=== PATIENT | male | born 1950 | race Caucasian/White ===

== ENCOUNTER 2018-10-10 02:47 | Outpatient (CLI) | payer BC, SELFPAY ==
--- NOTE | 2018-10-10 15:20 | PFT_ITS ---
DATE OF SERVICE: 10/10/18 REQUESTING PROVIDER: Dr. Sarah Spirometry shows no evidence of obstructive airways disease. No bronchodilator testing was carried out. Lung volumes show mild restriction. This may be related to respiratory neuromuscular weakness. Diffusion capacity both uncorrected and corrected are normal. Airways resistance normal. IMPRESSION: No evidence of obstructive airways disease. The mild restrictive pattern seen on this pulmonary test may be related to respiratory neuromuscular weakness. There is normal diffusion capacity. If respiratory neuromuscular weakness from myasthenia is in question, proceeding with MVV, MIP, and MEP maneuver may prove to be useful. Clinical correlation therefore recommended.
== END 2018-10-10 03:07 ==
PROVIDERS: PCP Family Medicine; Visit Provider Thoracic Surgery (Cardiothoracic Vascular Surgery)
DX: G70.00 Myasthenia gravis without (acute) exacerbation (principal)
CPT/HCPCS: 94150; 94726; 94729; 94010

== ENCOUNTER 2022-05-03 11:30 | Outpatient (CLI) | payer MEDICARE, BC, SELFPAY ==
[2022-05-03 11:46] LABS: Abs Immature Grans 0.05 10^3/uL (0.0-0.06); Absolute Basophil Count 0.04 10^3/uL (0.0-0.2); Absolute Lymphocyte Count 1.67 10^3/uL (1.2-3.4); Absolute Monocyte Count 0.77 10^3/uL (0.1-0.8); Absolute Neutrophil Count 5.26 10^3/uL (1.2-6.7); Basophils % 0.5; Eosinophils % 2.5; HCT 45.5 % (40.0-50.0); HGB 15.8 g/dL (13.5-17.5); Immature Grans % 0.6; Lymphocytes % 20.9; MCH 32.3 pg (27.0-33.0); MCHC 34.7 % (32.0-36.0); MCV 93 fL (80-95); MPV 8.6 fL (8.0-11.0); Monocytes % 9.6; Neutrophils % 65.9; Platelet Count 235 10^3/uL (130-400); RBC 4.89 10^6/uL (4.36-5.78); RDW 11.9 % (11.8-14.1); RDW-SD 41.1 fL; WBC 7.99 10^3/uL (4.4-10.8)
[2022-05-03 11:55] LABS: ESR 3 mm/hr (0-20)
[2022-05-03 22:09] LABS: CRP, High Sensitivity 2.42 mg/L (See Note)
== END 2022-05-03 11:31 | disposition home or self-care (01) ==
LOC: LBO 11:31
PROVIDERS: PCP Physician Assistant Medical; Visit Provider Otolaryngology
DX: R51.9 Headache, unspecified (principal); J01.01 Acute recurrent maxillary sinusitis
CPT/HCPCS: 36415; 85652; 86141; 85025

== ENCOUNTER → 2022-05-17 02:04 | Outpatient (CLI) | payer MEDICARE, BC, SELFPAY ==
--- NOTE | 2022-05-17 07:30 | DI.CT_ITS ---
Exam(s) CT SINUS WO EXAM: CT SINUS WO CLINICAL HISTORY: hx sinusitus, facial pain,headache, r51.9 TECHNIQUE: COMPARISON: No exams were available for comparison FINDINGS: CT examination of the paranasal sinuses was performed without contrast administration. Visualized po rtions of the brain are unremarkable. Orbital contents appear intact. Mastoid air cells are clear and temporal bone structures are unremarkable. There appears to been a prior bilateral maxillary antrectomy. There is nasal deviation to the right. There is apparent resection of right middle turbinate. There are [id number] changes of mucop eriosteal thickening in the maxillary antra and ethmoid air cells bilaterally. Frontal and sphenoid sinuses are clear. No bony erosion or destruction. IMPRESSION: Mild to my sinusitis, chronic, involving maxillary and ethmoid sinuses as described above. Prior janis ateral maxillary antrectomy noted . RADIATION DOSE DELIVERED: 135.78mGy.cm Total DLP !Error CTDIvol DATA REPOSITORY: All CT scans at this facility are submitted to the National Radiology Data Registry (NRDR) Dose Index Registry (DIR) with the [employer] (A[employer]). RADIATION OPTIMIZATION: All CT scans at this facility use at least one of these dose optimization te chniques: automated exposure control; mA and/or kV adjustment per patient size (includes targeted exa ms where dose is matched to clinical indication); or iterative reconstruction.
== END ==
PROVIDERS: PCP Physician Assistant Medical; Visit Provider Otolaryngology
DX: J32.2 Chronic ethmoidal sinusitis; J32.0 Chronic maxillary sinusitis
CPT/HCPCS: 70486

== ENCOUNTER 2024-06-29 17:14 | Inpatient (IN) | payer MEDICARE, BC, SELFPAY ==
[2024-06-29] VITALS (18 sets, daily range): BP systolic 110–140; BP diastolic 43–86; PULSE 75–81; RESP 14–22; TEMP 37.3–38.4; O2SAT 93–98
--- NOTE | 2024-06-29 17:45 | DI.CT_ITS ---
Exam(s) CT ABDOMEN PELVIS W EXAM: CT ABDOMEN PELVIS W CLINICAL HISTORY: RLQ abd pain. TECHNIQUE: Imaging Protocol: Axial computed tomography images with coronal and sagittal reformatted images were created and reviewed CONTRAST MATERIAL: Intravenous: Omnipaque-350 100cc Oral: None COMPARISON: CT ABD PELVIS WITH CONTRAST from 05/25/2009 FINDINGS: VISUALIZED LUNG BASES: There is a 3 mm nodule in the left lower lobe which was not evident on prior C T scan of 2008. There is also some pleural thickening in the lateral right lung base which was not p reviously present. This exhibits fluid density and is probably a small loculated pleural effusion. ABDOMEN: There is no ascites. LIVER: There is a cystic exophytic mass off the inferior aspect of the right hepatic lobe which is lo culated and measures approximately 8 cm craniocaudal x 4 cm at its widest x 4 cm AP. There is some s urrounding streaking in fat. The lower aspect of this finding is adherent to the musculature of the lateral abdominal wall. This has the appearance of a probable abscess or metastatic lesion. There a re no dilated intrahepatic ducts. GALLBLADDER/BILIARY: There are surgical clips around the gallbladder. No obvious gallstones. The CB D is not dilated. PANCREAS: No evidence of pancreatic mass nor dilatation of the pancreatic duct. SPLEEN: Spleen is not enlarged. No obvious intrasplenic lesions. Splenic and portal veins are paten t. ADRENALS: There are no significant adrenal masses. KIDNEYS:No cysts evident. No solid renal masses. No calculi nor hydronephrosis.. ABDOMINAL AORTA: Abdominal aorta is not enlarged. LYMPH NODES:There is no retroperitoneal nor paraaortic adenopathy. ABDOMINAL WALL: Is an anterior abdominal wall midline umbilical hernia which contains fat. There is some streaking in the fat but no drainable fluid collection and there are no bowel loops within the h ernia sac. There is no bowel obstruction. GI: No evidence of bowel obstruction nor free air. PELVIS: GI: Appendix is not identified and may be surgically absent.There is evidence of partial sigmoid rese ction. No obvious abnormality at this level. No evidence of obvious diverticulitis. LYMPH NODES: There is no intrapelvic nor inguinal adenopathy. REPRODUCTIVE: Prostate size upper normal. Seminal vesicles unremarkable. URINARY BLADDER: Partially obscured by beam hardening artifact from left hip prosthesis. The bladder is not distended. OSSEOUS: There is a left hip prosthesis. No fractures. No significant osseous lesions evident. IMPRESSION: 1. Main findings are in the right flank where there is a loculated predominately fluid density lesion intimately associated with the inferior aspect of the right hepatic lobe and extending caudally 8 cm by 4 cm wide by 4 cm AP. First consideration is for an abscess in the correct clinical setting. Ot her consideration here is for neoplasm although less likely. 2. There is evidence of previous partial sigmoid resection. No abnormality at this level in the left side of the pelvis. 3. There are surgical clips around a finding in the gallbladder fossa which has the appearance of a g allbladder in this patient apparently has had previous cholecystectomy for perforated gallbladder. T herefore this may be a remnant fluid collection in the gallbladder fossa and may be related to the ab ove described finding. 4. Anterior abdominal wall midline umbilical hernia containing streaking no bowel loops. There is no bowel obstruction 5. Recommend referral to interventional radiology for CT-guided right-sided percutaneous abscess dra hill. Findings discussed with ER physician 06/29/2024 at 7:45 p.m. RADIATION DOSE DELIVERED: 730.61mGy.cm Total DLP DATA REPOSITORY: All CT scans at this facility are submitted to the National Radiology Data Registry (NRDR) Dose Index Registry (DIR) with the [employer] (ACR). RADIATION OPTIMIZATION: All CT scans at this facility use at least one of these dose optimization te chniques: automated exposure control; mA and/or kV adjustment per patient size (includes targeted exa ms where dose is matched to clinical indication); or iterative reconstruction.
[2024-06-29 18:08] LABS: Lactate 1.4 mmol/L (0.6-1.4)
[2024-06-29 18:09] LABS: Abs Immature Grans 0.05 10^3/uL (0.0-0.06); Absolute Eosinophil Count 0.18 10^3/uL (0.0-0.7); Absolute Lymphocyte Count 1.45 10^3/uL (1.2-3.4); Absolute Monocyte Count 0.99 10^3/uL (0.1-0.8); Absolute Neutrophil Count 8.67 10^3/uL (1.2-6.7); Basophils % 0.4 %; Eosinophils % 1.6 %; HGB 14.8 g/dL (13.5-17.5); Immature Grans % 0.4 %; Lymphocytes % 12.7 %; MCH 32.2 pg (27.0-33.0); MCHC 34.4 % (32.0-36.0); MCV 94 fL (80-95); MPV 8.4 fL (8.0-11.0); Monocytes % 8.7 %; Neutrophils % 76.2 %; Platelet Count 256 10^3/uL (130-400); RBC 4.59 10^6/uL (4.36-5.78); RDW 12.2 % (11.8-14.1); RDW-SD 42.1 fL; WBC 11.38 10^3/uL (4.4-10.8)
[2024-06-29 18:10] LABS: Absolute Basophil Count 0.05 10^3/uL (0.0-0.2)
[2024-06-29] MEDS: HYDROmorphone 2 MG/ML SYR 1 MG IVP ×2 (18:12→22:02)
[2024-06-29] MEDS: Ondansetron 4 MG/2 ML VIAL IVP (18:12)
[2024-06-29 18:29] LABS: ALT 27 U/L (16-63); AST 19 U/L (15-37); Albumin 3.8 g/dL (3.4-5.0); Alkaline Phosphatase 82 U/L (46-116); Anion Gap 11.1 mmol/L (3-11); BUN 17 mg/dL (7-18); Bilirubin, Total 0.87 mg/dL (0.2-1.0); CO2 27.9 mmol/L (21.0-32.0); CREATININE 0.8 mg/dL (0.70-1.30); Calcium 8.8 mg/dL (8.5-10.1); Chloride 101 mmol/L (98-107); Estimated GFR 92.29 (mL/min/1.73m2); Glucose 110 mg/dL (74-106); Lipase 12 U/L (<78); Magnesium 2.1 mg/dL (1.8-2.4); Potassium 4.2 mmol/L (3.5-5.1); Sodium 140 mmol/L (136-145); Total Protein 8.1 g/dL (6.4-8.2)
[2024-06-29 18:41] LABS: Procalcitonin < 0.10 ng/mL
[2024-06-29] MEDS: ACETAMINOPHEN 1,000 MG/100 ML BAG 400 MG IVPB (19:00)
[2024-06-29 19:06] LABS: Bilirubin Negative (Negative); Blood Negative (Negative); Clarity Clear (Clear); Glucose Negative (Negative); Ketones 15 mg/dL (Negative); Leukocyte Esterase Negative (Negative); Nitrite Negative (Negative); Specific Gravity 1.025 (1.005-1.025)
[2024-06-29] MEDS: Omnipaque 350 MG/ML 100 ML BTL IJ (19:15)
[2024-06-29] MEDS: Normal Saline Flush 10 ML SYR IVP (19:17)
[2024-06-29] MEDS: Normal Saline - Diluent 50 ML VIAL IJ (19:17)
[2024-06-29] MEDS: PIPERACILLIN/TAZO 4.5 GM in Normal Saline 100 ML IVPB (20:37)
--- NOTE | 2024-06-29 22:00 | DI.RAD_ITS ---
Exam(s) XR PORTABLE CHEST AP EXAM: XR PORTABLE CHEST AP CLINICAL HISTORY: fever TECHNIQUE: 2D digital imaging was performed of the chest. One image was obtained. An AP view was ob tained. COMPARISON: CT CT ABDOMEN PELVIS W from 06/29/2024 FINDINGS: MEDIASTINUM: Normal. HEART: Normal. PULMONARY VASCULATURE: Normal. LUNGS: Atelectasis is seen in the left lung base. No focal consolidating infiltrates are seen. PLEURAL SPACE: No pleural effusion or pneumothorax. BONE:Within normal limits for the patient's age. OTHER FINDINGS:There is elevation of the right hemidiaphragm. IMPRESSION: Mild left basilar atelectasis. DATA REPOSITORY: RADIATION DOSE DELIVERED:
--- NOTE | 2024-06-29 22:04 | W.PM.HP.N ---
Date of service: 06/29/24 Time of Service: 22:32 Assessment and Plan Assessment and plan (1) Abdominal pain: Start date: 06/29/24 Status: Acute Assessment and plan: This is a 74-year-old gentleman who has had a 2-day history of fever and chills and abdominal wall discomfort. Exam reveals mostly tenderness with palpable mass over appendix incision and this may be an incarcerated incisional hernia though CT did not show an incisional hernia but umbilical hernia which was not obstructed. He will be given pain management with Dilaudid IV and as he is hungry, he will eat and drink as tolerated with clear fluids. Surgery was consulted and will review patient in the morning. He did have some element of flank pain with referred pain into his right testicle but did not have any evidence of nephrolithiasis with no hematuria. CT of the abdomen was unrevealing but CT renal colic imaging may be considered or ultrasound of the kidneys could be considered. If patient is cleared by surgery he may be able to return home with observant care if there is no treatable incisional hernia. 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 He is a full code. (2) Fever: Start date: 06/29/24 Status: Acute Assessment and plan: Patient had fever with the onset of symptoms of his abdominal discomfort. Imaging of the abdomen did show a stable fluid collection in the gallbladder fossa where he had a previous scope cholecystectomy after rupture of his gallbladder. This could be drained if there is a question of abscess. He also has a possible left lower lobe infiltrate which should be covered with patient on Zosyn for coverage of this abdominal source of infection. Cultures were performed. (3) Pneumonia: Start date: 06/29/24 Status: Acute Assessment and plan: Patient had no respiratory symptoms but fever. He is a previous smoker. Lung exam does show decreased aeration throughout but no focalizing findings. Patient should be covered with Zosyn for this problem and follow-up imaging if indicated. (4) Diabetes: Assessment and plan: Not on treatment with patient taking Ozempic caused his gallbladder to rupture. His control with diet and exercise but is overweight. Glucometer measurements ACHS with sensitive sliding scale insulin coverage. (5) Myasthenia gravis: Assessment and plan: Continue outpatient medical therapy. History of Present Illness History of Present Illness Chief Complaint: Progressive worsening of right mid abdominal wall pain, fever. Narrative: This is a 73-year-old male patient who has had an appendectomy when he was 7 years old with a well-healed scar and a ruptured gallbladder in April 2023 treated at [facility] status post partial colectomy and a chronic collection of fluid in the gallbladder fossa. He also has a history of diverticulitis which did not cause abscesses or rupture. Is unclear when he had his partial colectomy. 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 He does do lifting and 2 days prior to presentation patient began to have progressive worsening of right mid abdominal pain over his incisions where he had his previous appendectomy. There is a slight palpable hard mass in the same region. He also was having chills and fever but was eating normally though less. He denies any nausea or vomiting. He states that his pain did radiate into his mid back and he does have chronic back pain status post multiple joint replacements with left SADIQ and bilateral TKA. His pain did radiate into his right testicle at times but this is not persistent. He was seen by physical therapy today who palpated his firm mass in his right mid abdomen over the incisional region of the appendectomy which was quite long. He denied any rebound but has present tenderness to palpation over that area. He was guarding. He was sent to the outpatient clinic and then the ED for evaluation. CT of the abdomen appears stable according to [facility] surgery but did show an umbilical hernia which was not incarcerated he did not mention other incisional scars along the abdominal wall. It also did not mention any hydronephrosis the patient having been referred flank pain into his right testicle. In the ED the patient did receive Dilaudid which was transiently helping his abdominal wall discomfort but not completely getting rid of it. Tylenol was offered as well. He was hungry and wanted to drink fluids at least with his birthday being tomorrow. He denied nausea though he did have an order for Zofran. Local surgery was called and will be consulted for evaluation of the patient in the morning. The patient to be admitted for continued Zosyn IV with a question of abscessing of his gallbladder fossa fluid collection though this appears stable and [facility] surgery did not think this was an issue. Of concern is his fever and chills with his slightly elevated WBC. Some of the pain is in his right flank and back. His urinalysis did not have microscopic hematuria and had no history of renal lithiasis. He is not complaining of tenderness in the right upper quadrant. Patient is a full code. Review of Systems Narrative: 13 point review of systems otherwise unrevealing or stable. PFSH All Active Problems (Updated 06/30/24 @ 07:14 by Ignacio Lewis) Pneumonia (Acute) Fever (Acute) Abdominal pain (Acute) Headache (Acute) Facial pain (Acute) Postnasal drip (Acute) Acute maxillary sinusitis (Acute) Medical History Vertigo Change in vision History of angiography Diabetes Type 2 Myasthenia gravis Mitral valve prolapse Colon polyps Prinzmetal angina Chronic sinusitis Arthritis Surgical History History of total left hip replacement History of partial colectomy History of thymectomy 07/2018 History of repair of rotator cuff History of tonsillectomy and adenoidectomy History of appendectomy History of colonoscopy with polypectomy History of endoscopic sinus surgery History of total bilateral knee replacement Family History Father , 76 Prostate cancer Mother , 98 No problems noted. Brother Prostate cancer Brother Prostate cancer Sister Diabetes Social History Smoking/Tobacco Use Status: Former Tobacco Use Quit Date: 07/15/84 Smoking risk assessment performed?: Yes Alcohol Intake: never Drug use: Never Substance use type: does not use Housing: house Pets and animals: No Meds Allergies and Home Medications Allergies Allergy/AdvReac Type Severity Reaction Status Date / Time chlorzoxazone (From Parafon Allergy Chest pain Verified 06/29/24 17:22 Forte) ibuprofen Allergy Agitation Verified 06/29/24 17:22 rosuvastatin Allergy Other (See Verified 06/29/24 17:22 Comment) Home Medications ?Medication ?Instructions ?Recorded ?Confirmed ?Type acetaminophen 500 mg tablet 500 mg PO Q6H PRN 06/13/21 06/29/24 History cholecalciferol (vitamin D3) 1,250 1,250 mcg PO QWEEK 06/13/21 06/29/24 History mcg (50,000 unit) capsule loratadine 10 mg tablet (Allergy 10 mg PO DAILY 06/13/21 06/29/24 History Relief (loratadine)) pyridostigmine bromide 60 mg 30 mg PO TID 06/13/21 06/29/24 History tablet (Mestinon) tramadol 50 mg tablet (Ultram) 50 mg PO DAILY PRN 06/13/21 06/29/24 History semaglutide 0.25 mg or 0.5 mg (2 0.5 mg subcut QWEEK 07/04/22 06/29/24 History mg/1.5 mL) subcutaneous pen injector (Ozempic) Exam Narrative Exam Narrative: General: Patient is appropriate for age, moderately obese, moderate distress from his abdominal discomfort lying in bed with his head up at a 45 degree angle. He is alert and oriented x 3. HEENT: Normocephalic, eyes with pupils equal and react to light symmetrically, extraocular movement intact and sclera anicteric. Oropharynx with moist Koza and fair dentition. Neck: Supple without JVD. Back: Stooped posture without CVA tenderness. Lungs: Bronchovesicular breath sounds diffusely with fair aeration, no focalizing rales or rhonchi. No expiratory wheeze. Heart: Regular rate and rhythm with no murmurs or gallops appreciated. Abdomen: Obese contour, soft to palpation with no palpable hepatosplenomegaly or Brooke sign. Multiple incisional scars over his abdomen with tenderness and focal palpable firm mass over right mid to lower abdominal incision from his previous appendectomy when he is 7 years old. This mass is not movable or reducible. It is tender focally without rebound. Genitalia/rectal: Exam deferred. Extremities: No clubbing, cyanosis or pitting edema. Well-healed scars over both knees. Moderate nonpitting edema both lower extremities. Good capillary refill. Skin: Normal color, warm and slightly moist. Neuro: Cranial nerves II through XII gross intact, patient is hard of hearing, no focalizing motor deficits and no tremor. Psych: Normal affect and mood. No abnormal thought processes. Remote and recent memory grossly intact. Results Imaging Imaging Studies: EXAM: CT ABDOMEN PELVIS W CLINICAL HISTORY: RLQ abd pain. TECHNIQUE: Imaging Protocol: Axial computed tomography images with coronal and sagittal reformatted images were created and reviewed CONTRAST MATERIAL: Intravenous: Omnipaque-350 100cc Oral: None COMPARISON: CT ABD PELVIS WITH CONTRAST from 05/25/2009 FINDINGS: VISUALIZED LUNG BASES: There is a 3 mm nodule in the left lower lobe which was not evident on prior CT scan of 2008. There is also some pleural thickening in the lateral right lung base which was not previously present. This exhibits fluid density and is probably a small loculated pleural effusion. ABDOMEN: There is no ascites. LIVER: There is a cystic exophytic mass off the inferior aspect of the right hepatic lobe which is loculated and measures approximately 8 cm craniocaudal x 4 cm at its widest x 4 cm AP. There is some surrounding streaking in fat. The lower aspect of this finding is adherent to the musculature of the lateral abdominal wall. This has the appearance of a probable abscess or metastatic lesion. There are no dilated intrahepatic ducts. GALLBLADDER/BILIARY: There are surgical clips around the gallbladder. No obvious gallstones. The CBD is not dilated. PANCREAS: No evidence of pancreatic mass nor dilatation of the pancreatic duct. SPLEEN: Spleen is not enlarged. No obvious intrasplenic lesions. Splenic and portal veins are patent. ADRENALS: There are no significant adrenal masses. KIDNEYS:No cysts evident. No solid renal masses. No calculi nor hydronephrosis.. ABDOMINAL AORTA: Abdominal aorta is not enlarged. LYMPH NODES:There is no retroperitoneal nor paraaortic adenopathy. ABDOMINAL WALL: Is an anterior abdominal wall midline umbilical hernia which contains fat. There is some streaking in the fat but no drainable fluid collection and there are no bowel loops within the hernia sac. There is no bowel obstruction. GI: No evidence of bowel obstruction nor free air. PELVIS: GI: Appendix is not identified and may be surgically absent.There is evidence of partial sigmoid resection. No obvious abnormality at this level. No evidence of obvious diverticulitis. LYMPH NODES: There is no intrapelvic nor inguinal adenopathy. REPRODUCTIVE: Prostate size upper normal. Seminal vesicles unremarkable. URINARY BLADDER: Partially obscured by beam hardening artifact from left hip prosthesis. The bladder is not distended. OSSEOUS: There is a left hip prosthesis. No fractures. No significant osseous lesions evident. IMPRESSION: 1. Main findings are in the right flank where there is a loculated predominately fluid density lesion intimately associated with the inferior aspect of the right hepatic lobe and extending caudally 8 cm by 4 cm wide by 4 cm AP. First consideration is for an abscess in the correct clinical setting. Other consideration here is for neoplasm although less likely. 2. There is evidence of previous partial sigmoid resection. No abnormality at this level in the left side of the pelvis. 3. There are surgical clips around a finding in the gallbladder fossa which has the appearance of a gallbladder in this patient apparently has had previous cholecystectomy for perforated gallbladder. Therefore this may be a remnant fluid collection in the gallbladder fossa and may be related to the above described finding. 4. Anterior abdominal wall midline umbilical hernia containing streaking no bowel loops. There is no bowel obstruction 5. Recommend referral to interventional radiology for CT-guided right-sided percutaneous abscess drainage. Exam: XR Chest Exam date and time: 06/29/2024 10:18 PM Age: 73 years old Clinical indication: Fever TECHNIQUE: Imaging protocol: Radiologic exam of the chest. Views: 1 view. COMPARISON: CT ABDOMEN PELVIS W 06/29/2024 7:11 PM FINDINGS: Lungs: Focal atelectasis and/or early consolidation left lower lobe of the lung may represent lobar pneumonia. There is mild pulmonary venous congestion. There is mild diffuse interstitial edema. Underlying inflammatory or infectious process not excluded. Pleural spaces: There are no pleural effusions. No evidence of pneumothorax. Heart/Mediastinum: The heart is enlarged. There is prominence of the mediastinum. Vasculature: The aorta demonstrates mild atherosclerotic calcification. Bones/joints: The skeletal structures and soft tissues show no evidence of fracture or other acute processes. Soft tissues: The soft tissues of the extrathoracic region are unremarkable. IMPRESSION: 1. Possible congestive heart failure. Underlying inflammatory or infectious process not excluded. 2. Focal atelectasis and/or early consolidation left lower lobe of the lung may represent lobar pneumonia. Labs 06/30/24 06:05 06/30/24 06:05 Labs: Laboratory Results - last 24 hr 06/29/24 06/29/24 06/29/24 18:03 18:03 18:53 WBC 11.38 H RBC 4.59 Hgb 14.8 Hct 43.0 MCV 94 MCH 32.2 MCHC 34.4 RDW 12.2 Plt Count 256 MPV 8.4 Immature Gran % 0.4 Neutrophils % 76.2 Lymphocytes % 12.7 Monocytes % 8.7 Eosinophils % 1.6 Basophils % 0.4 Nucleated RBC % 0.0 Absolute Neutrophils 8.67 H Absolute Lymphocytes 1.45 Absolute Monocytes 0.99 H Absolute Eosinophils 0.18 Absolute Basophils 0.05 VBG Lactate 1.4 Sodium 140 Potassium 4.2 Chloride 101 Carbon Dioxide 27.9 Anion Gap 11.1 H BUN 17 Creatinine 0.8 Est GFR (CKD-EPI 2020) 92.29 Glucose 110 H Calcium 8.8 Magnesium 2.1 Total Bilirubin 0.87 AST 19 ALT 27 Alkaline Phosphatase 82 Total Protein 8.1 Albumin 3.8 Lipase Cancelled 12 Procalcitonin < 0.10 Urine Color Yellow Urine Clarity Clear Urine pH 6.0 Ur Specific [place] 1.025 Urine Protein Negative Urine Ketones 15 H Urine Blood Negative Urine Nitrite Negative Urine Bilirubin Negative Urine Urobilinogen 1.0 H Ur Leukocyte Esterase Negative Urine Glucose Negative Last Vital Signs Temp 38.4 C H 06/29/24 20:35 Pulse 75 06/29/24 20:56 Resp 18 06/29/24 20:56 BP 117/58 L 06/29/24 20:56 Pulse Ox 95 06/29/24 20:56 Time Spent Time spent with Patient: >75 minutes Time was spent: preparing to see the patient(eg.review tests), obtaining and/or reviewing separately otained hiistory, ordering medications,tests, procedures, referring, communicating with other health healthcare network pricing consultant, indepentently interpreting results, counseling the patient and care coordination
--- NOTE | 2024-06-29 22:53 | ED.GENADUL_ITS ---
Discharge Plan Disposition Patient Disposition: Admit to [facility] Condition: Fair Discharge Details Clinical Impression: Abdominal pain, Fever Primary Care Provider: Tasha Brooks ED Provider: Antonio Diaz Home Meds and New Rx's Prescriptions: No Action pyridostigmine bromide [Mestinon] 60 mg tablet 30 mg PO TID tramadol [Ultram] 50 mg tablet 50 mg PO DAILY PRN acetaminophen 500 mg tablet 500 mg PO Q6H PRN cholecalciferol (vitamin D3) 1,250 mcg (50,000 unit) capsule 1,250 mcg PO QWEEK loratadine [Allergy Relief (loratadine)] 10 mg tablet 10 mg PO DAILY Ozempic 0.25 mg or 0.5 mg(2 mg/1.5 mL) pen injector 0.5 mg subcut QWEEK HPI General Date/Time Provider Initiated Documentation: 06/29/24 17:20 . Limitations to Documentation: no limitations . Information obtained by: patient . HPI Narrative: 33-year-old gentleman with past medical history of myasthenia gravis, status post thymectomy, diabetes, perforated diverticulitis, status post sigmoid resection, appendectomy, perforated Dary cystitis presents for evaluation of fever and abdominal pain. Reports she has had 2 days of right lower quadrant abdominal pain. He reports that he has had subjective fever at home with chills and sweating. No nausea or vomiting. Denies any diarrhea or constipation. Pain is localized to the right lower quadrant and does not radiate or move. No exacerbating relieving symptoms. Been going to physical therapy for his back pain he thought that might be will related. Related Data Home Medications ?Medication ?Instructions ?Recorded ?Confirmed acetaminophen 500 mg tablet 500 mg PO Q6H PRN 06/13/21 06/29/24 cholecalciferol (vitamin D3) 1,250 1,250 mcg PO QWEEK 06/13/21 06/29/24 mcg (50,000 unit) capsule loratadine 10 mg tablet (Allergy 10 mg PO DAILY 06/13/21 06/29/24 Relief (loratadine)) pyridostigmine bromide 60 mg 30 mg PO TID 06/13/21 06/29/24 tablet (Mestinon) tramadol 50 mg tablet (Ultram) 50 mg PO DAILY PRN 06/13/21 06/29/24 semaglutide 0.25 mg or 0.5 mg (2 0.5 mg subcut QWEEK 07/04/22 06/29/24 mg/1.5 mL) subcutaneous pen injector (Ozempic) Allergies Allergy/AdvReac Type Severity Reaction Status Date / Time chlorzoxazone (From Parafon Allergy Chest pain Verified 06/29/24 17:22 Forte) ibuprofen Allergy Agitation Verified 06/29/24 17:22 rosuvastatin Allergy Other (See Verified 06/29/24 17:22 Comment) General Stated Complaint: Abd Prob ROSAURA: 3 Exam Narrative Exam Narrative: Review of Systems: All systems reviewed & are unremarkable except as noted in HPI and below Well-developed, appears uncomfortable Fever NCAT No jaundice RRR no murmur Unlabored respiratory effort clear bilaterally Nondistended abdomen soft, significant tenderness and guarding in the right lower quadrant, no rebound or rigidity no CVA tenderness, no back tenderness Course Vital Signs Vital signs: Vital Signs Temperature 38.1 C H 06/29/24 17:16 Pulse 79 06/29/24 17:16 Respiratory Rate 15 06/29/24 17:16 Blood Pressure 140/74 06/29/24 17:16 Pulse Oximetry 96 06/29/24 17:16 Temperature 38.4 C H 06/29/24 20:35 Pulse 75 06/29/24 20:56 Respiratory Rate 18 06/29/24 20:56 Blood Pressure 117/58 L 06/29/24 20:56 Blood Pressure Position Sitting 06/29/24 17:20 Pulse Oximetry 95 06/29/24 20:56 Oxygen Delivery Method Room Air 06/29/24 20:56 Oxygen Flow Rate 0 06/29/24 20:56 Pain Level 6 06/29/24 22:02 Lab/Test Results Lab/Test Results: 06/29/24 20:45 Blood Blood Culture - Pending 06/29/24 20:40 Blood Blood Culture - Pending Laboratory Tests Range/Units 06/29/24 06/29/24 06/29/24 18:03 18:03 18:53 WBC (4.4-10.8) 10^3/uL 11.38 H RBC (4.36-5.78) 10^6/uL 4.59 Hgb (13.5-17.5) g/dL 14.8 Hct (40.0-50.0) % 43.0 MCV (80-95) fL 94 MCH (27.0-33.0) pg 32.2 MCHC (32.0-36.0) % 34.4 RDW (11.8-14.1) % 12.2 Plt Count (130-400) 10^3/uL 256 MPV (8.0-11.0) fL 8.4 Immature Gran % % 0.4 Neutrophils % % 76.2 Lymphocytes % % 12.7 Monocytes % % 8.7 Eosinophils % % 1.6 Basophils % % 0.4 Nucleated RBC % (0.0-0.3) % 0.0 Absolute Neutrophils (1.2-6.7) 10^3/uL 8.67 H Absolute Lymphocytes (1.2-3.4) 10^3/uL 1.45 Absolute Monocytes (0.1-0.8) 10^3/uL 0.99 H Absolute Eosinophils (0.0-0.7) 10^3/uL 0.18 Absolute Basophils (0.0-0.2) 10^3/uL 0.05 VBG Lactate (0.6-1.4) mmol/L 1.4 Sodium (136-145) mmol/L 140 Potassium (3.5-5.1) mmol/L 4.2 Chloride (98-107) mmol/L 101 Carbon Dioxide (21.0-32.0) mmol/L 27.9 Anion Gap (3-11) mmol/L 11.1 H BUN (7-18) mg/dL 17 Creatinine (0.70-1.30) mg/dL 0.8 Est GFR (CKD-EPI 2020) (mL/min/1.73m2) 92.29 Glucose (74-106) mg/dL 110 H Calcium (8.5-10.1) mg/dL 8.8 Magnesium (1.8-2.4) mg/dL 2.1 Total Bilirubin (0.2-1.0) mg/dL 0.87 AST (15-37) U/L 19 ALT (16-63) U/L 27 Alkaline Phosphatase (46-116) U/L 82 Total Protein (6.4-8.2) g/dL 8.1 Albumin (3.4-5.0) g/dL 3.8 Lipase Cancelled 12 Procalcitonin ng/mL < 0.10 Urine Color (Yellow) Yellow Urine Clarity (Clear) Clear Urine pH (5-8) 6.0 Ur Specific [place] (1.005-1.025) 1.025 Urine Protein (Neg-Trace) mg/dL Negative Urine Ketones (Negative) mg/dL 15 H Urine Blood (Negative) Negative Urine Nitrite (Negative) Negative Urine Bilirubin (Negative) Negative Urine Urobilinogen (Up to 0.2) mg/dL 1.0 H Ur Leukocyte Esterase (Negative) Negative Urine Glucose (Negative) mg/dL Negative Medical Decision Making Emergent evaluation of fever and abdominal pain. Initial differential includes colitis, urinary tract infection, intra-abdominal abscess. Patient is fairly tender on examination is noted to be febrile though not hypotensive or tachycardic. Lab work was obtained, he does have a leukocytosis with a left shift. No anemia. Lactic acid is at the upper limit of normal. He does have some ketones in his urine, but no signs of infection. No significant electrolyte derangements. His lipase is not elevated, his LFTs are unremarkable. His procalcitonin is not elevated. CT scan of his abdomen was obtained and there are 2 abnormalities surrounding the liver noted. There appears to be a fluid collection in the gallbladder fossa as the patient has had a full cholecystectomy. There is also fluid collection coming off of the liver. I have covered the patient with antibiotics and blood cultures have been ordered. I have no prior images, but the patient and his state that he did have surgery at [facility] in April 2023. I have reached out to them and had her images pushed to them. I did discuss with the patient's surgeon, Dr. Grijalva. He was able to review the images and noted that the CT scan that we obtained today is not significantly different from the patient's last MRI and CT imaging. These fluid collections were present postoperatively and have been stable since that time. No significant enlargement. Would be unlikely that these unchanged fluid collections are the cause of the patient's fever and abdominal pain. Dr. Grijalva states that he can see the patient in clinic later this week however the patient is reporting persistent abdominal pain is having persistent fever despite Tylenol does not feel comfortable going home. Dr. Morales does not feel that the patient needs to be transferred for admission. I did discuss with our hospitalist and general surgeon here who feel comfortable admitting the patient for persistent continued pain control, IV antibiotics and surveillance of any ongoing symptoms. Quality:SDOH Health Related Social Needs: No Data to Display PFSH All Active Problems Fever (Acute) Abdominal pain (Acute) Headache (Acute) Facial pain (Acute) Postnasal drip (Acute) Acute maxillary sinusitis (Acute) Medical History Vertigo Change in vision History of angiography Diabetes Type 2 Myasthenia gravis Mitral valve prolapse Colon polyps Prinzmetal angina Chronic sinusitis Arthritis Surgical History History of total left hip replacement History of partial colectomy History of thymectomy 07/2018 History of repair of rotator cuff History of tonsillectomy and adenoidectomy History of appendectomy History of colonoscopy with polypectomy History of endoscopic sinus surgery History of total bilateral knee replacement Family History Father , 76 Prostate cancer Mother , 98 No problems noted. Brother Prostate cancer Brother Prostate cancer Sister Diabetes Social History Smoking/Tobacco Use Status: Former Tobacco Use Quit Date: 07/15/84 Smoking risk assessment performed?: Yes Alcohol Intake: never Drug use: Never Substance use type: does not use Pets and animals: No
--- NOTE | 2024-06-29 23:50 | W.PC.ACHO ---
Registration Status: Primary Language: Preferred Language: ED Information & Data Chief Complaint Abd Prob 06/29/24 22:58 Triage Note PT reports 8 of 10 pain in L 06/29/24 17:16 /R abd quad, tender bump present in same area. Pain started last saturday after getting home from a PT appointment. Medical / Surgical History (Last Reviewed 06/29/24 @ 22:54 by Antonio Diaz MD) Vertigo Change in vision History of angiography Diabetes Myasthenia gravis Mitral valve prolapse Colon polyps Prinzmetal angina Chronic sinusitis Arthritis (Last Reviewed 06/29/24 @ 22:54 by Antonio Diaz MD) History of total left hip replacement History of partial colectomy History of thymectomy History of repair of rotator cuff History of tonsillectomy and adenoidectomy History of appendectomy History of colonoscopy with polypectomy History of endoscopic sinus surgery History of total bilateral knee replacement Most Recent Vital Signs Temperature 38.4 C H 06/29/24 20:35 Pulse 78 06/29/24 22:00 Pulse 75 06/29/24 22:10 Respiratory Rate 17 06/29/24 22:10 Blood Pressure 127/57 L 06/29/24 22:00 Blood Pressure Mean 83 06/29/24 22:00 Blood Pressure Position Sitting 06/29/24 17:20 Pulse Oximetry 94 06/29/24 22:10 Oxygen Delivery Method Room Air 06/29/24 20:56 Oxygen Flow Rate 0 06/29/24 20:56 Pain Level 6 06/29/24 22:02 Allergies chlorzoxazone (From Parafon Forte) Allergy (Verified 06/29/24 17:22) Chest pain ibuprofen Allergy (Verified 06/29/24 17:22) Agitation causes mental status changes rosuvastatin Allergy (Verified 06/29/24 17:22) Other (See Comment) Didnt like the way it felt. Active Medications Generic Name Dose Route Start Last Admin Trade Name Freq PRN Reason Stop Dose Admin Iohexol 100 ml 06/29/24 19:15 06/29/24 19:15 Omnipaque 350 Mg/Ml 100 Ml Btl IJ 07/29/24 23:59 100 ml DIRECTED MARIEL Administration Sodium Chloride 0 ml 06/29/24 17:49 06/29/24 19:17 Normal Saline Flush 10 Ml Syr IVP 10 ml PRN PRN Administration Sodium Chloride 50 ml 06/29/24 19:30 06/29/24 19:17 Normal Saline - Diluent 50 Ml Vial IJ 50 ml .FOR DI USE MARIEL Administration IV IV Catheter Type [Right Peripheral IV Antecubital] IV Catheter Gauge [Right 20 Antecubital] Diagnostics 06/29/24 06/29/24 06/29/24 Range/Units 18:53 18:03 18:03 WBC 11.38 H (4.4-10.8) 10^3/uL RBC 4.59 (4.36-5.78) 10^6/uL Hgb 14.8 (13.5-17.5) g/dL Hct 43.0 (40.0-50.0) % MCV 94 (80-95) fL MCH 32.2 (27.0-33.0) pg MCHC 34.4 (32.0-36.0) % RDW 12.2 (11.8-14.1) % Plt Count 256 (130-400) 10^3/uL MPV 8.4 (8.0-11.0) fL Immature Gran % 0.4 % Neutrophils % 76.2 % Lymphocytes % 12.7 % Monocytes % 8.7 % Eosinophils % 1.6 % Basophils % 0.4 % Nucleated RBC % 0.0 (0.0-0.3) % Absolute Neutrophils 8.67 H (1.2-6.7) 10^3/uL Absolute Lymphocytes 1.45 (1.2-3.4) 10^3/uL Absolute Monocytes 0.99 H (0.1-0.8) 10^3/uL Absolute Eosinophils 0.18 (0.0-0.7) 10^3/uL Absolute Basophils 0.05 (0.0-0.2) 10^3/uL VBG Lactate 1.4 (0.6-1.4) mmol/L Sodium 140 (136-145) mmol/L Potassium 4.2 (3.5-5.1) mmol/L Chloride 101 (98-107) mmol/L Carbon Dioxide 27.9 (21.0-32.0) mmol/L Anion Gap 11.1 H (3-11) mmol/L BUN 17 (7-18) mg/dL Creatinine 0.8 (0.70-1.30) mg/dL Est GFR (CKD-EPI 2020) 92.29 (mL/min/1.73m2) Glucose 110 H (74-106) mg/dL Calcium 8.8 (8.5-10.1) mg/dL Magnesium 2.1 (1.8-2.4) mg/dL Total Bilirubin 0.87 (0.2-1.0) mg/dL AST 19 (15-37) U/L ALT 27 (16-63) U/L Alkaline Phosphatase 82 (46-116) U/L Total Protein 8.1 (6.4-8.2) g/dL Albumin 3.8 (3.4-5.0) g/dL Lipase 12 Cancelled Procalcitonin < 0.10 ng/mL Urine Color Yellow (Yellow) Urine Clarity Clear (Clear) Urine pH 6.0 (5-8) Ur Specific [place] 1.025 (1.005-1.025) Urine Protein Negative (Neg-Trace) mg/dL Urine Ketones 15 H (Negative) mg/dL Urine Blood Negative (Negative) Urine Nitrite Negative (Negative) Urine Bilirubin Negative (Negative) Urine Urobilinogen 1.0 H (Up to 0.2) mg/dL Ur Leukocyte Esterase Negative (Negative) Urine Glucose Negative (Negative) mg/dL 06/29/24 20:45 Blood Culture - Pending Blood 06/29/24 20:40 Blood Culture - Pending Blood Intake and Output - 24 Hour Total 06/29/24 17:14 thru 06/29/24 21:12 Intake Total 200 Balance 200 Weight 99.79 kg Intake: IV 200 Falls Risk Assessment History of Falls No History 06/29/24 17:20 Contributing Factors No Factors 06/29/24 17:20 Ambulatory Aids Independent 06/29/24 17:20 Tubes/Lines None 06/29/24 17:20 Gait Evaluation No gait disturbance 06/29/24 17:20 Cognition No cognitive impairment 06/29/24 17:20 Fall Total Score 0 06/29/24 17:20 Level of Risk Standard/Low Risk 06/29/24 17:20 Problems (Last Reviewed 06/29/24 @ 22:54 by Antonio Diaz MD) Fever (Acute) Abdominal pain (Acute) v v v v v v v v v Sending and/or Receiving Nurses: Please use comment section below to note any information pertinent to the patient hand-off not included above. Information / Comments: Pt admitted to Room 230 for abdominal pain. Pt has received acetaminophen for fever, and dilaudid for pain. He is currently tolerating PO fluids without nausea or vomiting. IV is saline locked. Report received from: Tanvir Spangler
[2024-06-30] VITALS (12 sets, daily range): BP systolic 104–119; BP diastolic 45–65; PULSE 70–79; RESP 16–18; TEMP 36.8–38.8; O2SAT 93–97
--- NOTE | 2024-06-30 | DI.US_ITS ---
Exam(s) US SCROTUM EXAM: US SCROTUM CLINICAL HISTORY: right testicular pain TECHNIQUE: Ultrasound of the testes performed using grayscale, color, and Doppler imaging. COMPARISON: CT CT ABDOMEN PELVIS W from 06/29/2024 FINDINGS: RIGHT HEMISCROTUM: Right testicle exhibits normal size and blood flow. Eccentrically located in the testicle is an 11 x 4 x 7 mm hypoechoic avascular area which measures 7.7 mm craniocaudal by 6.9 mm x 2.4 mm. The epididymis appears unremarkable. There are no epididymal head cysts. There is a small right hydrocele. No evidence of right-sided varicocele. LEFT HEMISCROTUM: The left testicle exhibits normal size and echo architecture with no evidence of intratesticular mass . Vascular flow is demonstrated within the left testicle, including arterial waveforms. The epididymis appears unremarkable. There are no epididymal head cysts. There is a small left-sided hydrocele and there is also a left-sided varicocele evident. IMPRESSION: 1. There is an eccentrically located hypoechoic avascular area with in the right testicle measuring a pproximately 11 x 4 x 7 mm. Correlation with any possible prior history of trauma recommended. Find ing may represent intratesticular hematoma. Cannot exclude neoplasm. Appropriate follow-up recommen ded. 2. There are small bilateral hydroceles. There is a left-sided varicocele. DATA REPOSITORY:
--- NOTE | 2024-06-30 | DI.US_ITS ---
Exam(s) US SOFT TISS ABD WALL/LOW BACK EXAM: US SOFT TISS ABD WALL/LOW BACK CLINICAL HISTORY: Rule out incisional hernia. TECHNIQUE: Ultrasound was performed using standard protocol. COMPARISON: No exams were available for comparison FINDINGS: Sonographic assessment utilizing grayscale and color Doppler imaging was performed and targeted to th e area of clinical concern. There is no evidence of full-thickness disruption of the anterior abdominal wall to suggest a hernia. There is an area of hypo echogenicity along the superior surface of the underlying musculature whic h may represent scar. No suspicious cystic or solid masses are seen. IMPRESSION: No evidence of a incisional hernia in the right lower quadrant. DATA REPOSITORY:
--- NOTE | 2024-06-30 | DI.MRI_ITS ---
Exam(s) MR ABDOMEN WO/W EXAM: MR ABDOMEN WO/W CLINICAL HISTORY: mass in liver TECHNIQUE: Multiplanar multisequence MRI of the Abdomen was performed. CONTRAST MATERIAL: IV Contrast: 20 mL of Dotarem contrast administered. COMPARISON: CT CT ABDOMEN PELVIS W from 06/29/2024 FINDINGS: Liver: There is a multiloculated cystic lesion in contact with or arising from the posterior and caud al aspect of the right lobe of the liver and extending inferiorly to the abdominal wall. It measures 4.5 AP by 4.5 transverse by 10 cm craniocaudad. Internally it is T2 hyperintense and T1 hypointense . Following contrast administration, there is thin wall enhancement. There is also enhancement gauri g the inner surface of the abdominal wall on the right which is in contact with this multi-cystic les ion. There is mild thickening of the wall also noted. There is stranding seen in the surrounding so ft tissues. No other intrahepatic or perihepatic lesions are seen. Pancreas: No suspicious pancreatic mass or peripancreatic fluid collection. There is a 2 mm simple c yst in the tail of the pancreas. Gallbladder and Bile Ducts: No evidence of cholelithiasis. No biliary ductal dilatation. Adrenals: Unremarkable. Kidneys: No evidence of obstructive uropathy. No suspicious renal mass. Spleen: Unremarkable. Bowel: There is diverticulosis of the colon. No evidence of acute diverticulitis. 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 There is no evidence of bowel obstruction. Aorta: Unremarkable. Soft Tissues: Unremarkable. Bone: Unremarkable. Lymph Nodes: Unremarkable. IMPRESSION: 1. There is a 4.5 x 4.5 x 10 cm peripherally enhancing multiloculated cystic lesion at the inferior p osterior aspect of the right lobe of the liver and extending to the posterior abdominal wall musculat ure. There is infiltration in the surrounding soft tissues. There is thickening and enhancement of the adjacent musculature. The musculature is intact. Differential considerations include multilocul ated abscess. A neoplasm cannot be entirely excluded. Resolving hematoma or seroma or considered le ss likely. DATA REPOSITORY:
--- NOTE | 2024-06-30 00:06 | DI.VRAD_ITS ---
PROCEDURE INFORMATION: Exam: XR Chest Exam date and time: 06/29/2024 10:18 PM Age: 73 years old Clinical indication: Fever TECHNIQUE: Imaging protocol: Radiologic exam of the chest. Views: 1 view. COMPARISON: CT ABDOMEN PELVIS W 06/29/2024 7:11 PM FINDINGS: Lungs: Focal atelectasis and/or early consolidation left lower lobe of the lung may represent lobar pneumonia. There is mild pulmonary venous congestion. There is mild diffuse interstitial edema. Underlying inflammatory or infectious process not excluded. Pleural spaces: There are no pleural effusions. No evidence of pneumothorax. Heart/Mediastinum: The heart is enlarged. There is prominence of the mediastinum. Vasculature: The aorta demonstrates mild atherosclerotic calcification. Bones/joints: The skeletal structures and soft tissues show no evidence of fracture or other acute processes. Soft tissues: The soft tissues of the extrathoracic region are unremarkable. IMPRESSION: 1. Possible congestive heart failure. Underlying inflammatory or infectious process not excluded. 2. Focal atelectasis and/or early consolidation left lower lobe of the lung may represent lobar pneumonia. Dictated and Authenticated by: Elan Carson MD. Ordering:[facility] Emily Williamson MD
[2024-06-30] MEDS: Acetaminophen 500 MG TAB 1000 MG PO ×3 (00:59→14:06)
[2024-06-30] MEDS: Normal Saline Flush 10 ML SYR IVP ×4 (01:00→20:10)
[2024-06-30] MEDS: Heparin 5,000 UNITS/ML VIAL 5000 UNITS SC ×3 (01:05→16:48)
[2024-06-30] MEDS: HYDROmorphone 1 MG/ML SYR IVP ×3 (01:51→13:44)
[2024-06-30] MEDS: PIPERACILLIN/TAZO 3.375 GM in Normal Saline 50 ML IVPB ×4 (02:37→20:07)
[2024-06-30 06:44] LABS: HCT 38.2 % (40.0-50.0); HGB 13.6 g/dL (13.5-17.5); MCH 32.7 pg (27.0-33.0); MCHC 35.6 % (32.0-36.0); MCV 92 fL (80-95); MPV 8.8 fL (8.0-11.0); Platelet Count 242 10^3/uL (130-400); RBC 4.16 10^6/uL (4.36-5.78); WBC 9.16 10^3/uL (4.4-10.8)
[2024-06-30 06:58] LABS: ALT 70 U/L (16-63); AST 78 U/L (15-37); Alkaline Phosphatase 103 U/L (46-116); Anion Gap 10.9 mmol/L (3-11); BUN 16 mg/dL (7-18); Bilirubin, Total 1.11 mg/dL (0.2-1.0); CO2 25.1 mmol/L (21.0-32.0); CREATININE 0.9 mg/dL (0.70-1.30); Calcium 8.4 mg/dL (8.5-10.1); Chloride 102 mmol/L (98-107); Estimated GFR 88.51 (mL/min/1.73m2); Glucose 213 mg/dL (74-106); Potassium 3.7 mmol/L (3.5-5.1); Sodium 138 mmol/L (136-145); Total Protein 6.8 g/dL (6.4-8.2)
[2024-06-30 07:04] LABS: TSH (W/Ref FT4) 2.01 uIU/mL (0.36-3.74)
--- NOTE | 2024-06-30 07:31 | W.SURGCON ---
Date of service: 06/30/24 Time of Service: 07:31 Assessment and Plan Assessment and plan (1) Abdominal pain: Status: Acute Assessment and plan: Based on the history that he describes it what sounds like an incisional or spigelian hernia would be the most likely diagnosis. However, the CT scan looks totally normal in this area. I suppose there could be a small fascial defect that is not obvious on the CT scan. Certainly, there is no evidence of obstruction, or any other marked pathology in the area in question. I have added an ultrasound of the site to see if that can delineate any other potential source. I do not think the right lower quadrant pain is at all related to the abnormalities associated with his cholecystectomy surgery. It sounds like those have been longstanding and consistent, and they are well away from the area of tenderness History of Present Illness History of Present Illness Chief Complaint: Right lower quadrant pain Narrative: Jonn is 74 years old. He comes to the emergency department on the suggestion of his physical therapist for a painful lump in the right lower quadrant abdominal wall. He says he first noticed it about 2 days ago. He describes the pain as sharp, and generally focal and stable in location. He is able to pinpoint it with his fingertip. There is some association with right flank and back pain, but it sounds like that has occurred on multiple occasions, and the right lower quadrant pain is new. Sometimes the pain in his back radiates down into his scrotum. He denies any nausea or vomiting. He thinks he had some subjective fevers prior to presentation. In the emergency department, was found of a white blood cell count around 9. Bilirubin and transaminases were also very mildly elevated. He underwent a CT scan of the abdomen and pelvis that shows fluid collection in the gallbladder fossa and adjacent to the tip of the right liver. It is worth mentioning that he had a cholecystectomy about a year ago for what sounds like fairly severe cholecystitis. These fluid collections were known postoperatively, and has been followed by his surgeon down at [facility]. He has undergone imaging prior to this, and a phone call between the emergency department and the surgeon indicate that the findings on the CT scan are consistent with those previously seen. This is well away from the area of his complaint. Past surgical history is most significant for the cholecystectomy mentioned above, sigmoidectomy for what sounds like diverticulitis, and an open appendectomy as a child Review of Systems Constitutional Constitutional: Reports fever(s) Eyes Eyes: Reports system reviewed and no additional complaints, except as documented ENT Ears, Nose, Mouth, and Throat: Reports system reviewed and no additional complaints, except as documented Cardiovascular Cardiovascular: Denies chest pain and Denies dyspnea Respiratory Respiratory: Denies chest congestion, Denies cough and Denies dyspnea Gastrointestinal Gastrointestinal: Reports abdominal pain, Denies bloating, Denies change in stool character and Denies cramping Genitourinary Comments: Right testicular pain Musculoskeletal Musculoskeletal: Reports back pain Neurologic Neurologic: Reports system reviewed and no additional complaints, except as documented Psychiatric Psychiatric: Reports system reviewed and no additional complaints, except as documented Hematologic/Lymphatic Hematologic/Lymphatic: Denies easy bleeding and Denies easy bruising PFSH All Active Problems (Updated 06/30/24 @ 07:14 by Ignacio Lewis) Pneumonia (Acute) Fever (Acute) Abdominal pain (Acute) Headache (Acute) Facial pain (Acute) Postnasal drip (Acute) Acute maxillary sinusitis (Acute) Medical History Vertigo Change in vision History of angiography Diabetes Type 2 Myasthenia gravis Mitral valve prolapse Colon polyps Prinzmetal angina Chronic sinusitis Arthritis Surgical History History of total left hip replacement History of partial colectomy History of thymectomy 07/2018 History of repair of rotator cuff History of tonsillectomy and adenoidectomy History of appendectomy History of colonoscopy with polypectomy History of endoscopic sinus surgery History of total bilateral knee replacement Family History Father , 76 Prostate cancer Mother , 98 No problems noted. Brother Prostate cancer Brother Prostate cancer Sister Diabetes Social History Smoking/Tobacco Use Status: Former Tobacco Use Quit Date: 07/15/84 Smoking risk assessment performed?: Yes Alcohol Intake: never Drug use: Never Substance use type: does not use Housing: house Pets and animals: No Exam Const General: cooperative, comfortable and no acute distress Nutritional Appearance: overweight Orientation: alert, awake and oriented x3 HENMT Head: normal to inspection Eyes General: appearance normal, both eyes and all related structures GI Inspection: non-distended Palpation: soft, guarding (Right lower quadrant), no hernias and tender (Right lower quadrant) Percussion: normal to percussion Auscultation: normal bowel sounds Results Last Vital Signs Temp 100.2 F H 06/30/24 07:15 Pulse 75 06/30/24 07:15 Resp 16 06/30/24 07:15 BP 115/61 06/30/24 07:15 Pulse Ox 96 06/30/24 07:15 Labs 06/30/24 06:05 06/30/24 06:05 Labs: Laboratory Results - last 24 hr 06/29/24 06/29/24 06/29/24 18:03 18:03 18:53 WBC 11.38 H RBC 4.59 Hgb 14.8 Hct 43.0 MCV 94 MCH 32.2 MCHC 34.4 RDW 12.2 Plt Count 256 MPV 8.4 Immature Gran % 0.4 Neutrophils % 76.2 Lymphocytes % 12.7 Monocytes % 8.7 Eosinophils % 1.6 Basophils % 0.4 Nucleated RBC % 0.0 Absolute Neutrophils 8.67 H Absolute Lymphocytes 1.45 Absolute Monocytes 0.99 H Absolute Eosinophils 0.18 Absolute Basophils 0.05 VBG Lactate 1.4 Sodium 140 Potassium 4.2 Chloride 101 Carbon Dioxide 27.9 Anion Gap 11.1 H BUN 17 Creatinine 0.8 Est GFR (CKD-EPI 2020) 92.29 Glucose 110 H Calcium 8.8 Magnesium 2.1 Total Bilirubin 0.87 AST 19 ALT 27 Alkaline Phosphatase 82 Total Protein 8.1 Albumin 3.8 Lipase Cancelled 12 Procalcitonin < 0.10 TSH Urine Color Yellow Urine Clarity Clear Urine pH 6.0 Ur Specific [place] 1.025 Urine Protein Negative Urine Ketones 15 H Urine Blood Negative Urine Nitrite Negative Urine Bilirubin Negative Urine Urobilinogen 1.0 H Ur Leukocyte Esterase Negative Urine Glucose Negative 06/30/24 06:05 WBC 9.16 RBC 4.16 L Hgb 13.6 Hct 38.2 L MCV 92 MCH 32.7 MCHC 35.6 RDW 12.0 Plt Count 242 MPV 8.8 Immature Gran % Neutrophils % Lymphocytes % Monocytes % Eosinophils % Basophils % Nucleated RBC % Absolute Neutrophils Absolute Lymphocytes Absolute Monocytes Absolute Eosinophils Absolute Basophils VBG Lactate Sodium 138 Potassium 3.7 Chloride 102 Carbon Dioxide 25.1 Anion Gap 10.9 BUN 16 Creatinine 0.9 Est GFR (CKD-EPI 2020) 88.51 Glucose 213 H Calcium 8.4 L Magnesium 2.0 Total Bilirubin 1.11 H AST 78 H ALT 70 H Alkaline Phosphatase 103 Total Protein 6.8 Albumin 3.0 L Lipase Procalcitonin TSH 2.01 Urine Color Urine Clarity Urine pH Ur Specific [place] Urine Protein Urine Ketones Urine Blood Urine Nitrite Urine Bilirubin Urine Urobilinogen Ur Leukocyte Esterase Urine Glucose
--- NOTE | 2024-06-30 09:34 | W.PM.PROGNOT ---
Date of Service Date of service: 06/30/24 Time of Service: 09:34 Assessment and Plan Assessment and plan (1) Abdominal pain: Start date: 06/29/24 Status: Acute Assessment and plan: This is a 74-year-old gentleman who has had a 2-day history of fever and chills and abdominal wall discomfort. CT of the abd and pelvis findings: -Negative for an incisional hernia but umbilical hernia which was not obstructed. -Main findings are in the right flank where there is a loculated predominately fluid density lesion intimately associated with the inferior aspect of the right hepatic lobe and extending caudally 8 cm by 4 cm wide by 4 cm AP. First consideration is for an abscess in the correct clinical setting. Other consideration here is for neoplasm although less likely. -There are surgical clips around a finding in the gallbladder fossa which has the appearance of a gallbladder in this patient apparently has had previous cholecystectomy for perforated gallbladder. Therefore this may be a remnant fluid collection in the gallbladder fossa and may be related to the above described finding. -Anterior abdominal wall midline umbilical hernia containing streaking no bowel loops. There is no bowel obstruction -Recommend referral to interventional radiology for CT-guided right-sided percutaneous abscess drainage. Surgery consult intiated; seen by Dr javde MRI ordered by Dr Heredia with the following findings: -There is a 4.5 x 4.5 x 10 cm peripherally enhancing multiloculated cystic lesion at the inferior posterior aspect of the right lobe of the liver and extending to the posterior abdominal wall musculature with infiltration in the surrounding soft tissues. -Differential considerations include multiloculated abscess. A neoplasm cannot be entirely excluded. Resolving hematoma or seroma or considered less likely. [place] [facility] [place] Pain management with ongoing PRN APAP & IV hydromorphone (2) Fever: Start date: 06/29/24 Status: Acute Assessment and plan: WBC 9 from 11 Continue Zosyn and PRN APAP Q8H Will try one dose of ketorolac - seems to have been having agitation with ibuprofen in the past Blood cultures pending (3) On deep vein thrombosis (DVT) prophylaxis: Status: Acute Assessment and plan: Heparin SC (4) Abnormal chest xray: Status: Acute Assessment and plan: Possible left lower lobe infiltrate Covered w Zosyn (5) Pneumonia: Start date: 06/29/24 Status: Acute Assessment and plan: No respiratory symptoms but febrile. He is a previous smoker. On Zosyn as per point 2 (6) Diabetes: Assessment and plan: Not on treatment with patient taking Ozempic caused his gallbladder to rupture. Continue diabetic diet Glucometer measurements ACHS ; sensitive sliding scale insulin coverage ordered but has refused medicine. (7) Myasthenia gravis: Assessment and plan: On outpatient medical therapy w Mestinon. (8) Right testicular pain: Status: Acute Assessment and plan: Reported pain irradiating from right testicle- painful to touch, erythema US scrotum ordered (9) Discharge planning issues: Status: Acute Assessment and plan: Home w no service when medically cleared Discussed with Dr. Vargas Subjective Subjective Patient reports: still having pain, tolerating liquids well, voiding w/o difficulty, flatus, bowel movement, shortness of breath and fever; denies blood in stool, nausea or vomiting Exam Narrative Exam Narrative: Constitutional HENMT: Facial structures with normal appearance Eyes: Well aligned Neuro:alert and oriented to self, person, place time and situation. No neurological focal deficit Resp: Unlabored breathing, clear lung bilaterally Cardio: regular rhythm, S1, S2, no murmur, capillary refill<3 sec., bilateral radial and dorsalis pedis pulses are positive, palpable GI: Abdomen is not distended, soft w right sided tenderness, bowel sounds are present : right Costovertebral angle tenderness,right sided testicular pain Back/spine/Pelvis: normal alignment Integumentary: No skin lesions or rash Extremities: strength 5/5 to bilateral lower and upper extremities Psych: RASS 0, congruent mood and normal affect. Objective Last Vital Signs Temp 36.9 C 06/30/24 09:15 Pulse 75 06/30/24 07:15 Resp 16 06/30/24 07:15 BP 115/61 06/30/24 07:15 Pulse Ox 96 06/30/24 07:15 Laboratory Results - last 24 hr 06/29/24 06/29/24 06/29/24 18:03 18:03 18:53 WBC 11.38 H RBC 4.59 Hgb 14.8 Hct 43.0 MCV 94 MCH 32.2 MCHC 34.4 RDW 12.2 Plt Count 256 MPV 8.4 Immature Gran % 0.4 Neutrophils % 76.2 Lymphocytes % 12.7 Monocytes % 8.7 Eosinophils % 1.6 Basophils % 0.4 Nucleated RBC % 0.0 Absolute Neutrophils 8.67 H Absolute Lymphocytes 1.45 Absolute Monocytes 0.99 H Absolute Eosinophils 0.18 Absolute Basophils 0.05 VBG Lactate 1.4 Sodium 140 Potassium 4.2 Chloride 101 Carbon Dioxide 27.9 Anion Gap 11.1 H BUN 17 Creatinine 0.8 Est GFR (CKD-EPI 2020) 92.29 Glucose 110 H Calcium 8.8 Magnesium 2.1 Total Bilirubin 0.87 AST 19 ALT 27 Alkaline Phosphatase 82 Total Protein 8.1 Albumin 3.8 Lipase Cancelled 12 Procalcitonin < 0.10 TSH Urine Color Yellow Urine Clarity Clear Urine pH 6.0 Ur Specific [place] 1.025 Urine Protein Negative Urine Ketones 15 H Urine Blood Negative Urine Nitrite Negative Urine Bilirubin Negative Urine Urobilinogen 1.0 H Ur Leukocyte Esterase Negative Urine Glucose Negative 06/30/24 06:05 WBC 9.16 RBC 4.16 L Hgb 13.6 Hct 38.2 L MCV 92 MCH 32.7 MCHC 35.6 RDW 12.0 Plt Count 242 MPV 8.8 Immature Gran % Neutrophils % Lymphocytes % Monocytes % Eosinophils % Basophils % Nucleated RBC % Absolute Neutrophils Absolute Lymphocytes Absolute Monocytes Absolute Eosinophils Absolute Basophils VBG Lactate Sodium 138 Potassium 3.7 Chloride 102 Carbon Dioxide 25.1 Anion Gap 10.9 BUN 16 Creatinine 0.9 Est GFR (CKD-EPI 2020) 88.51 Glucose 213 H Calcium 8.4 L Magnesium 2.0 Total Bilirubin 1.11 H AST 78 H ALT 70 H Alkaline Phosphatase 103 Total Protein 6.8 Albumin 3.0 L Lipase Procalcitonin TSH 2.01 Urine Color Urine Clarity Urine pH Ur Specific [place] Urine Protein Urine Ketones Urine Blood Urine Nitrite Urine Bilirubin Urine Urobilinogen Ur Leukocyte Esterase Urine Glucose Time Spent with Patient Time Spent with Patient: >50 minutes Time was spent: preparing to see the patient(eg.review tests), obtaining and/or reviewing separately otained hiistory, ordering medications,tests, procedures, referring, communicating with other health healthcare account manager, indepentently interpreting results, counseling the patient and care coordination
--- NOTE | 2024-06-30 10:57 | PDOC.CMIN ---
Date of service: 06/30/24 Time of Service: 10:57 Care Management Initial Assmt Initial Assessment Reason for Hospitalization: abdominal pain Functional Status/Living Situation Patient Presentation: Dae was sitting up in bed visiting with his Roxy when CM met with him. He was pleasant in interaction and engaged easily in conversation. Dae was admitted with severe abdominal pain which he stated he feels is related somehow to a PT session he had the day the symptoms began. He explained that he has a lump over the appendectomy scar from his surgery at age 7. He has undergone imaging of his chest, scrotum and abdomen and has had a surgical consult. Some of the imaging suggests the possible presence of an abscess (or abscesses)and surgery has been involved in the treatment plan. Town of Residence: [place], [place] Resides with: Spouse (Adriana) Employment Status: Employed ([employer]) Instrumental Activities of Daily Living (ADLs): Independent Medications Medication Management: No Issues/Barriers identified Advance Directives Advance Directives: Do you have an Advance Directive: N 06/17/24 09:29 AD On File at [facility]: N 06/17/24 09:29 Date Asked 06/29/24 06/29/24 17:18 AD Date Reviewed COLST On File at [facility] COLST Date Scanned Code Status Resuscitation Status Full Code Insurance Coverage/Financial Issues Insurance: Medicare /[facility] Care Team Visit Care Team Role Provider Type Tasha Brooks Primary Care Provider NON-[facility] STAFF PHYSICIAN Forest Bass MD Other Providers [facility] STAFF PHYSICIAN Antonio Diaz MD Emergency Provider [facility] STAFF PHYSICIAN Ignacio Lewis Admit Provider NON-[facility] STAFF PHYSICIAN Attending Provider Discharge Potential Discharge Needs: PCP F/U Appt Anticipated Barriers to Discharge: None Identified Patient/Family Education Needs: Review discharge instructions, discuss Ask Me Three Transportation: Private vehicle Plan: Anticipate Jonn will be discharged home with no new services , depending on the course of his illness. He will follow up with his community providers and plan of care and transport with family. CM will follow and continue to assess for discharge needs. PFSH All Active Problems (Updated 06/30/24 @ 16:07 by Zehra Tarango APRN) Right testicular pain (Acute) Abnormal chest xray (Acute) Discharge planning issues (Acute) On deep vein thrombosis (DVT) prophylaxis (Acute) Pneumonia (Acute) Fever (Acute) Abdominal pain (Acute) Headache (Acute) Facial pain (Acute) Postnasal drip (Acute) Acute maxillary sinusitis (Acute) Medical History Vertigo Change in vision History of angiography Diabetes Type 2 Myasthenia gravis Mitral valve prolapse Colon polyps Prinzmetal angina Chronic sinusitis Arthritis Surgical History History of total left hip replacement History of partial colectomy History of thymectomy 07/2018 History of repair of rotator cuff History of tonsillectomy and adenoidectomy History of appendectomy History of colonoscopy with polypectomy History of endoscopic sinus surgery History of total bilateral knee replacement Family History Father , 76 Prostate cancer Mother , 98 No problems noted. Brother Prostate cancer Brother Prostate cancer Sister Diabetes Social History Smoking/Tobacco Use Status: Former Tobacco Use Quit Date: 07/15/84 Smoking risk assessment performed?: Yes Alcohol Intake: never Drug use: Never Substance use type: does not use Housing: house Pets and animals: No SDOH(Care Management) Screening Will the Patient Participate in the Screening?: Yes Do you worry about having a steady place to live?: no Problems where you live: no known problems In the past 12 months, have you had to go without electric, gas, oil or water in your home?: no Have you or anyone in your house had to go without enough food to eat?: no Has lack of transportation kept you from medical appointments or from doing things needed for daily living?: no Has anyone in your support network made you feel unsafe for any reason?: no
[2024-06-30] MEDS: LORazepam 0.5 MG TAB PO (11:04)
[2024-06-30] MEDS: Gadoterate meglumine 20 ML VIAL IVP (11:37)
[2024-06-30] MEDS: Normal Saline - Diluent 50 ML VIAL IJ (11:38)
[2024-06-30] MEDS: Polyethylene Glycol 3350 17 GM PACKET PO (13:42)
[2024-06-30] MEDS: Insulin Aspart 300 UNITS/3 ML PEN SC (16:39)
[2024-06-30] MEDS: Ketorolac 15 MG/ML VIAL IVP (16:40)
--- NOTE | 2024-06-30 17:11 | CHAPLAIN ---
I visited with Jonn and his this evening. Jonn was in bed. They were both very pleasant and easily engaged in conversation. Jonn said he has found the staff here to be very friendly and caring. 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 I explained my role and offered support.
[2024-07-01] MEDS: Heparin 5,000 UNITS/ML VIAL 5000 UNITS SC ×3 (00:38→16:44)
[2024-07-01] MEDS: HYDROmorphone 1 MG/ML SYR IVP ×4 (02:28→18:11)
[2024-07-01] MEDS: PIPERACILLIN/TAZO 3.375 GM in Normal Saline 50 ML IVPB ×4 (02:30→20:00)
[2024-07-01] MEDS: Normal Saline Flush 10 ML SYR IVP ×6 (02:40→20:00)
[2024-07-01 03:30] VITALS: BP 116/62; PULSE 74; RESP 18; TEMP 37.3; O2SAT 92
[2024-07-01 06:40] LABS: Abs Immature Grans 0.04 10^3/uL (0.0-0.06); Absolute Basophil Count 0.02 10^3/uL (0.0-0.2); Absolute Eosinophil Count 0.18 10^3/uL (0.0-0.7); Absolute Lymphocyte Count 1.34 10^3/uL (1.2-3.4); Absolute Monocyte Count 0.84 10^3/uL (0.1-0.8); Absolute Neutrophil Count 5.76 10^3/uL (1.2-6.7); Basophils % 0.2 %; Eosinophils % 2.2 %; HCT 39.2 % (40.0-50.0); Immature Grans % 0.5 %; Lymphocytes % 16.4 %; MCH 32.7 pg (27.0-33.0); MCHC 35.7 % (32.0-36.0); MCV 92 fL (80-95); MPV 8.6 fL (8.0-11.0); Monocytes % 10.3 %; Neutrophils % 70.4 %; Platelet Count 243 10^3/uL (130-400); RBC 4.28 10^6/uL (4.36-5.78); RDW 11.9 % (11.8-14.1); RDW-SD 39.9 fL; WBC 8.18 10^3/uL (4.4-10.8)
[2024-07-01 06:53] LABS: Prothrombin Time 10.2 sec (9.1-11.1)
[2024-07-01 07:01] LABS: ALT 121 U/L (16-63); AST 136 U/L (15-37); Albumin 2.9 g/dL (3.4-5.0); Alkaline Phosphatase 118 U/L (46-116); Anion Gap 10.1 mmol/L (3-11); BUN 12 mg/dL (7-18); Bilirubin, Total 1.49 mg/dL (0.2-1.0); CO2 25.9 mmol/L (21.0-32.0); CREATININE 0.8 mg/dL (0.70-1.30); Calcium 8.2 mg/dL (8.5-10.1); Chloride 103 mmol/L (98-107); Estimated GFR 91.72 (mL/min/1.73m2); Glucose 141 mg/dL (74-106); Magnesium 2.1 mg/dL (1.8-2.4); Sodium 139 mmol/L (136-145); Total Protein 6.9 g/dL (6.4-8.2)
[2024-07-01 08:25] VITALS: BP 115/65; PULSE 74; RESP 16; TEMP 36.5; O2SAT 98
[2024-07-01 11:23] VITALS: BP 109/63; PULSE 74; RESP 16; TEMP 37.3; O2SAT 94
--- NOTE | 2024-07-01 11:42 | PGE_ITS ---
Date of Service Date of service: 07/01/24 Time of Service: 11:42 Assessment and Plan Assessment and plan (1) Abdominal pain: Start date: 06/29/24 Status: Acute Assessment and plan: On presentation on 06/29/2024, this is a 74-year-old gentleman who has had a 2- day history of fever and chills and abdominal wall discomfort. CT of the abd and pelvis findings: -Negative for an incisional hernia but umbilical hernia which was not obstructed. -Main findings are in the right flank where there is a loculated predominately fluid density lesion intimately associated with the inferior aspect of the right hepatic lobe and extending caudally 8 cm by 4 cm wide by 4 cm AP. First consideration is for an abscess in the correct clinical setting. Other consideration here is for neoplasm although less likely. -There are surgical clips around a finding in the gallbladder fossa which has the appearance of a gallbladder in this patient apparently has had previous cholecystectomy for perforated gallbladder. Therefore this may be a remnant fluid collection in the gallbladder fossa and may be related to the above described finding. -Anterior abdominal wall midline umbilical hernia containing streaking no bowel loops. There is no bowel obstruction -Recommend referral to interventional radiology for CT-guided right-sided perc utaneous abscess drainage. Surgery consult intiated; seen by Dr javed MRI ordered by Dr Heredia with the following findings: -There is a 4.5 x 4.5 x 10 cm peripherally enhancing multiloculated cystic lesion at the inferior posterior aspect of the right lobe of the liver and extending to the posterior abdominal wall musculature with infiltration in the surrounding soft tissues. -Differential considerations include multiloculated abscess. A neoplasm cannot be entirely excluded. Resolving hematoma or seroma or considered less likely. On IV zosyn [facility] IR consult initiated: Plan for abd abscess drainage on 07/02/2024 at 14:30- Round trip -Spoke to Dr. Lau who requested surgical report from [facility]- report faxed today to IR dep. - Order faxed as well as H&P - OK with current DVT prophylaxis Continue pain management with PRN APAP & IV hydromorphone NPO post midnight Hold Am dose of heparin (2) Fever: Start date: 06/29/24 Status: Acute Assessment and plan: WBC normalized now from 11 Ongoing Zosyn PRN APAP Q8H tired one dose of ketorolac - seems to have been having agitation with ibuprofen in the past Consider using ketorolac Blood cultures No growth at 24 hours (3) On deep vein thrombosis (DVT) prophylaxis: Status: Acute Assessment and plan: On Heparin SC Hold AM dose on 07/02 Resume s/p abscess drainage (4) Abnormal chest xray: Status: Acute Assessment and plan: On admission with possible left lower lobe infiltrate Covered w Zosyn for abd abscess (5) Pneumonia: Start date: 06/29/24 Status: Acute Assessment and plan: Mostly unlikley without respiratory symptoms febrile mostly d/t abd etilology On Zosyn as per point 2 (6) Diabetes: Assessment and plan: Not on treatment with patient taking Ozempic caused his gallbladder to rupture. Continue diabetic diet Glucometer measurements ACHS ; sensitive sliding scale insulin coverage ordered but has refused medicine. (7) Myasthenia gravis: Assessment and plan: On outpatient medical therapy w Mestinon. (8) Right testicular pain: Status: Acute Assessment and plan: Reported pain irradiating from right testicle- painful to touch, erythema Pain startedf s/p PT last US scrotum: RIGHT HEMISCROTUM: Right testicle exhibits normal size and blood flow. Eccentrically located in the testicle is an 11 x 4 x 7 mm hypoechoic avascular area which measures 7.7 mm craniocaudal by 6.9 mm x 2.4 mm. Appears w irregular borders oon imaging Surgical consult: As per discussion with Dr. Javed, hypoperfusion is localized, ongoing since last week with recommendation for urology consult urology consult: Placed-not in today Beta HCG ordered (9) Discharge planning issues: Status: Acute Assessment and plan: Home w no service when medically cleared Discussed with Dr. Vargas Subjective Subjective Patient reports: still having pain, pain is less, tolerating liquids well, voiding w/o difficulty, flatus, shortness of breath and fever; denies diarrhea, blood in stool, nausea or vomiting Exam Narrative Exam Narrative: Constitutional Neuro:alert and oriented X4 . No neurological focal deficit Resp: Unlabored breathing, clear lung bilaterally Cardio: regular rhythm, S1, S2, no murmur, capillary refill<3 sec., bilateral radial and dorsalis pedis pulses are positive, palpable GI: Abdomen is not distended, soft w right sided tenderness, bowel sounds are present : right Costovertebral angle tenderness,right sided testicular pain Back/spine/Pelvis: normal alignment Integumentary: No skin lesions or rash Extremities: strength 5/5 to bilateral lower and upper extremities Psych: RASS 0, congruent mood and normal affect. Objective Last Vital Signs Temp 37.3 C 07/01/24 11:23 Pulse 74 07/01/24 11:23 Resp 16 07/01/24 11:23 BP 109/63 07/01/24 11:23 Pulse Ox 94 07/01/24 11:23 Laboratory Results - last 24 hr 07/01/24 06:14 WBC 8.18 RBC 4.28 L Hgb 14.0 Hct 39.2 L MCV 92 MCH 32.7 MCHC 35.7 RDW 11.9 Plt Count 243 MPV 8.6 Immature Gran % 0.5 Neutrophils % 70.4 Lymphocytes % 16.4 Monocytes % 10.3 Eosinophils % 2.2 Basophils % 0.2 Nucleated RBC % 0.0 Absolute Neutrophils 5.76 Absolute Lymphocytes 1.34 Absolute Monocytes 0.84 H Absolute Eosinophils 0.18 Absolute Basophils 0.02 PT 10.2 INR 1.0 APTT 31.0 Sodium 139 Potassium 4.0 Chloride 103 Carbon Dioxide 25.9 Anion Gap 10.1 BUN 12 Creatinine 0.8 Est GFR (CKD-EPI 2020) 91.72 Glucose 141 H Calcium 8.2 L Magnesium 2.1 Total Bilirubin 1.49 H AST 136 H ALT 121 H Alkaline Phosphatase 118 H Total Protein 6.9 Albumin 2.9 L Time Spent with Patient Time Spent with Patient: >50 minutes Time was spent: preparing to see the patient(eg.review tests), obtaining and/or reviewing separately otained hiistory, ordering medications,tests, procedures, referring, communicating with other health child care assistant, indepentently interpreting results, counseling the patient and care coordination
[2024-07-01 13:20] LABS: Lactate 1.6 mmol/L (0.6-1.4)
[2024-07-01 14:41] VITALS: BP 118/63; PULSE 74; RESP 16; TEMP 37.5; O2SAT 94
[2024-07-01] MEDS: Insulin Aspart 300 UNITS/3 ML PEN SC (16:44)
--- NOTE | 2024-07-01 17:28 | PDOC.CMPRO ---
Date of service: 07/01/24 Time of Service: 17:28 Care Management Progress Note Progress Note Text Progress Note Text: Dae was sitting up in bed visiting with his when CM met with him. He was pleasant in manner and engaged well with CM. He continues to have abdominal pain and had a heating pad on his abdomen. Dae is scheduled to go to [facility] tomorrow for a down and back abscess drainage procedure. He has at least one abscess identified on CT scan and confirmed with MRI. He remains afebrile, his WBC has returned to normal and his vital signs are stable. Discharge Potential Discharge Needs: PCP F/U Appt Anticipated Barriers to Discharge: Medical Status Patient/Family Education Needs: Review discharge instructions, discuss Ask Me Three Transportation: Private vehicle Plan: Anticipate Jonn will be discharged home with no new services, depending on the course of his illness, when he is medically cleared. He will follow up with his community providers and plan of care and transport with family. CM will follow and continue to assess for discharge needs. SDOH(Care Management) Screening Will the Patient Participate in the Screening?: Yes Do you worry about having a steady place to live?: no Problems where you live: no known problems In the past 12 months, have you had to go without electric, gas, oil or water in your home?: no Have you or anyone in your house had to go without enough food to eat?: no Has lack of transportation kept you from medical appointments or from doing things needed for daily living?: no Has anyone in your support network made you feel unsafe for any reason?: no
[2024-07-01] MEDS: Acetaminophen 500 MG TAB 1000 MG PO (18:12)
[2024-07-01 20:15] VITALS: BP 126/67; PULSE 73; RESP 18; TEMP 37.3; O2SAT 96
[2024-07-02] MEDS: PIPERACILLIN/TAZO 3.375 GM in Normal Saline 50 ML IVPB ×4 (01:12→18:31)
[2024-07-02] MEDS: Normal Saline Flush 10 ML SYR IVP ×4 (01:15→11:49)
[2024-07-02] MEDS: HYDROmorphone 1 MG/ML SYR IVP ×3 (03:02→11:48)
[2024-07-02 03:15] VITALS: BP 110/56; PULSE 75; RESP 15; TEMP 37.2; O2SAT 93
[2024-07-02] MEDS: Acetaminophen 500 MG TAB 1000 MG PO ×2 (06:18→20:27)
[2024-07-02 07:02] LABS: Abs Immature Grans 0.04 10^3/uL (0.0-0.06); Absolute Basophil Count 0.03 10^3/uL (0.0-0.2); Absolute Eosinophil Count 0.27 10^3/uL (0.0-0.7); Absolute Lymphocyte Count 1.41 10^3/uL (1.2-3.4); Absolute Monocyte Count 0.88 10^3/uL (0.1-0.8); Absolute Neutrophil Count 5.95 10^3/uL (1.2-6.7); Basophils % 0.3 %; Eosinophils % 3.1 %; HCT 39.7 % (40.0-50.0); HGB 13.8 g/dL (13.5-17.5); Immature Grans % 0.5 %; Lymphocytes % 16.4 %; MCH 32.5 pg (27.0-33.0); MCHC 34.8 % (32.0-36.0); MCV 93 fL (80-95); MPV 8.7 fL (8.0-11.0); Monocytes % 10.3 %; Neutrophils % 69.4 %; Platelet Count 257 10^3/uL (130-400); RBC 4.25 10^6/uL (4.36-5.78); RDW 11.9 % (11.8-14.1); RDW-SD 40.8 fL; WBC 8.58 10^3/uL (4.4-10.8)
[2024-07-02 07:30] LABS: ALT 104 U/L (16-63); AST 64 U/L (15-37); Albumin 2.9 g/dL (3.4-5.0); Alkaline Phosphatase 128 U/L (46-116); Anion Gap 7.6 mmol/L (3-11); BUN 11 mg/dL (7-18); Bilirubin, Total 1.16 mg/dL (0.2-1.0); CO2 27.4 mmol/L (21.0-32.0); CREATININE 0.7 mg/dL (0.70-1.30); Calcium 8.5 mg/dL (8.5-10.1); Chloride 104 mmol/L (98-107); Estimated GFR 95.49 (mL/min/1.73m2); Glucose 125 mg/dL (74-106); Potassium 3.9 mmol/L (3.5-5.1); Sodium 139 mmol/L (136-145)
[2024-07-02 07:50] VITALS: BP 100/69; PULSE 72; RESP 20; TEMP 36.8; O2SAT 98
--- NOTE | 2024-07-02 10:14 | PGE_ITS ---
Date of Service Date of service: 07/02/24 Time of Service: 10:14 Assessment and Plan Assessment and plan (1) Abdominal pain: Start date: 06/29/24 Status: Acute Assessment and plan: On presentation on 06/29/2024, this is a 74-year-old gentleman who has had a 2- day history of fever and chills and abdominal wall discomfort. CT of the abd and pelvis findings: -Negative for an incisional hernia but umbilical hernia which was not obstructed. -Main findings are in the right flank where there is a loculated predominately fluid density lesion intimately associated with the inferior aspect of the right hepatic lobe and extending caudally 8 cm by 4 cm wide by 4 cm AP. First consideration is for an abscess in the correct clinical setting. Other consideration here is for neoplasm although less likely. -There are surgical clips around a finding in the gallbladder fossa which has the appearance of a gallbladder in this patient apparently has had previous cholecystectomy for perforated gallbladder. Therefore this may be a remnant fluid collection in the gallbladder fossa and may be related to the above described finding. -Anterior abdominal wall midline umbilical hernia containing streaking no bowel loops. There is no bowel obstruction -Recommend referral to interventional radiology for CT-guided right-sided perc utaneous abscess drainage. Surgery consult intiated; seen by Dr javed MRI ordered by Dr Heredia with the following findings: -There is a 4.5 x 4.5 x 10 cm peripherally enhancing multiloculated cystic lesion at the inferior posterior aspect of the right lobe of the liver and extending to the posterior abdominal wall musculature with infiltration in the surrounding soft tissues. -Differential considerations include multiloculated abscess. A neoplasm cannot be entirely excluded. Resolving hematoma or seroma or considered less likely. Continue IV zosyn [facility] IR consult with completion of abd abscess drainage on 07/02/2024 at 14:30- Round trip -Accepting physician was Dr. Lau -report from [facility]- report faxed today to IR dep. -Resuming DVT prophylaxis On pain management regimen with PRN APAP & IV hydromorphone Was NPO for procedure diet was resumed (2) Fever: Start date: 06/29/24 Status: Acute Assessment and plan: WBC normalized Continue Zosyn Continue PRN APAP Q8H tired one dose of ketorolac -without adverse reaction Consider using ketorolac if increased pain regimen needed Blood cultures showed no growth at 48 hours (3) On deep vein thrombosis (DVT) prophylaxis: Status: Acute Assessment and plan: Resume Heparin SC in a.m. (4) Abnormal chest xray: Status: Acute Assessment and plan: Possible left lower lobe infiltrate seen on admission?no cough or need for oxygen supplementation Would most likely be covered by Zosyn given for for abd abscess (5) Pneumonia: Start date: 06/29/24 Status: Acute Assessment and plan: Remains unlikley without respiratory symptoms febrile mostly d/t abd etilology (6) Diabetes: Assessment and plan: Not on treatment was on Ozempic prior to his gallbladder to rupture. Continue diabetic diet Continue glucometer measurements ACHS ; sensitive sliding scale insulin coverage ordered but has refused medicine. (7) Myasthenia gravis: Assessment and plan: On home med regimen with Mestinon. (8) Right testicular pain: Status: Acute Assessment and plan: Reported pain irradiating from right testicle- painful to touch, erythema Pain started s/p PT last US scrotum: RIGHT HEMISCROTUM: Right testicle exhibits normal size and blood flow. Eccentrically located in the testicle is an 11 x 4 x 7 mm hypoechoic avascular area which measures 7.7 mm craniocaudal by 6.9 mm x 2.4 mm. Appears w irregular borders oon imaging Surgical consult: As previously, discussion with Dr. Javed in the setting of localized hypoperfusion and time frame of initial symptoms-recommendation for urology consult urology consult: Seen by Dr. Astudillo as per discussion lesion is most likely of cystic nature and most likely not malignant in the setting of patient's age Beta HCG pending (9) Discharge planning issues: Status: Acute Assessment and plan: Home w no service when medically cleared Discussed with Dr. Vargas Subjective Subjective Patient reports: no new complaints, feels better, pain is less, flatus and bowel movement; denies blood in stool, nausea, vomiting or shortness of breath Exam Narrative Exam Narrative: Constitutional Neuro:alert and oriented X4 . No neurological focal deficit Resp: Unlabored breathing, clear lung bilaterally Cardio: regular rhythm, S1, S2, no murmur GI: Abdomen is not distended, soft w improving right sided tenderness, bowel sounds are present : right Costovertebral angle tenderness improving,right sided testicular pain Back/spine/Pelvis: normal alignment Integumentary: No skin lesions or rash Extremities: strength 5/5 to bilateral lower and upper extremities Psych: RASS 0, congruent mood and normal affect. Objective Last Vital Signs Temp 36.8 C 07/02/24 07:50 Pulse 72 07/02/24 07:50 Resp 20 07/02/24 07:50 BP 100/69 07/02/24 07:50 Pulse Ox 98 07/02/24 07:50 Laboratory Results - last 24 hr 07/01/24 07/02/24 13:10 06:08 WBC 8.58 RBC 4.25 L Hgb 13.8 Hct 39.7 L MCV 93 MCH 32.5 MCHC 34.8 RDW 11.9 Plt Count 257 MPV 8.7 Immature Gran % 0.5 Neutrophils % 69.4 Lymphocytes % 16.4 Monocytes % 10.3 Eosinophils % 3.1 Basophils % 0.3 Nucleated RBC % 0.0 Absolute Neutrophils 5.95 Absolute Lymphocytes 1.41 Absolute Monocytes 0.88 H Absolute Eosinophils 0.27 Absolute Basophils 0.03 VBG Lactate 1.6 H Sodium 139 Potassium 3.9 Chloride 104 Carbon Dioxide 27.4 Anion Gap 7.6 BUN 11 Creatinine 0.7 Est GFR (CKD-EPI 2020) 95.49 Glucose 125 H Calcium 8.5 Total Bilirubin 1.16 H AST 64 H ALT 104 H Alkaline Phosphatase 128 H Total Protein 7.0 Albumin 2.9 L Time Spent with Patient Time Spent with Patient: >50 minutes Time was spent: preparing to see the patient(eg.review tests), obtaining and/or reviewing separately otained hiistory, ordering medications,tests, procedures, referring, communicating with other health wound care center consultant, indepentently interpreting results, counseling the patient and care coordination
--- NOTE | 2024-07-02 11:04 | CMPROGNOTE_ITS ---
Date of service: 07/02/24 Time of Service: 11:04 Care Management Progress Note Progress Note Text Progress Note Text: Dae was lying in bed visiting with his and son when CM met with him. He seemed to be in good spirits and was joking with his family and with CM. Dae was waiting for the ambulance to come to take him to [facility] for a down and back IR abscess drainage procedure. He and Roxy did share that he had a very bad reaction to general anesthesia when he had surgery in the past because of his myasthenia gravis. His called their neurologist at [facility] too discuss and asked that she ensure he was not given general anesthesia for the procedure. Clinically, his vital signs are stable and he remains afebrile. Discharge Potential Discharge Needs: Surgical F/U Appt Anticipated Barriers to Discharge: Medical Status Patient/Family Education Needs: Review discharge instructions, discuss Ask Me Three Transportation: Private vehicle Plan: Anticipate Dae will be discharged home with no new services, when he is medically cleared. He will follow up with his community providers and plan of care and transport with family. CM will follow and continue to assess for discharge needs. SDOH(Care Management) Screening Will the Patient Participate in the Screening?: Yes Do you worry about having a steady place to live?: no Problems where you live: no known problems In the past 12 months, have you had to go without electric, gas, oil or water in your home?: no Have you or anyone in your house had to go without enough food to eat?: no Has lack of transportation kept you from medical appointments or from doing things needed for daily living?: no Has anyone in your support network made you feel unsafe for any reason?: no
[2024-07-02 11:32] VITALS: BP 120/80; PULSE 69; RESP 20; TEMP 37; O2SAT 97
--- NOTE | 2024-07-02 11:46 | UCONE_ITS ---
Date of service: 07/02/24 Time of Service: 11:47 Assessment and Plan Assessment and plan (1) Right testicular pain: Status: Acute Assessment and plan: His right scrotal pain could certainly be referred from his right upper quadrant process. He will be quite interesting to see if his pain improves once the fluid collection is drained. The scrotal mass identified on ultrasound is not overly concerning. It is quite rare for a testicular malignancy to develop in a gentleman of this age. I do not actually palpate a mass which is generally the first sign of testicular malignancy rather than pain. I think it is reasonable to check tumor markers, but I certainly would not recommend any type of surgery at this time. History of Present Illness History of Present Illness Chief Complaint: Right scrotal pain Narrative: This is a 74-year-old gentleman who currently sees the urology service over at [facility]. This gentleman has a family history of prostate cancer and is monitored with PSAs and digital rectal exams. He is currently hospitalized with right abdominal and right scrotal pain. He tells me the pain became quite severe about 2 or 3 days ago. He was at the physical therapists at the time and a palpable abnormality was found on the right side of the abdomen. He was then referred to the emergency department. He describes pain in the right upper quadrant, right lower quadrant, right side of the back and right scrotum. He does not have any dysuria or gross hematuria. He has had similar symptoms in the past, but they have not been quite as severe. In fact, I can find previous imaging studies dating back to 03 04 that states that they were done because of right abdominal and testicle pain. Since presenting to our emergency department, he has been identified as having a right upper quadrant mass of uncertain significance. He had his gallbladder removed about a year ago. There is some indication that the mass/fluid collection has been present ever since then. He is scheduled to go down to the [facility] interventional radiology service to have the mass drained. As part of his evaluation here, he had a scrotal ultrasound done. There was a hypovascular area in the right testis identified. The patient does not recall any direct trauma to the testes recently. PFSH All Active Problems (Updated 07/06/24 @ 00:06 by FRANKLYN COLLAZO) Constipation (Acute) Intra-abdominal abscess (Acute) Right testicular pain (Acute) Abnormal chest xray (Acute) Pneumonia (Acute) Abdominal pain (Acute) Headache (Acute) Facial pain (Acute) Postnasal drip (Acute) Acute maxillary sinusitis (Acute) Medical History Vertigo Change in vision History of angiography Diabetes Type 2 Myasthenia gravis Mitral valve prolapse Colon polyps Prinzmetal angina Chronic sinusitis Arthritis Surgical History History of total left hip replacement History of partial colectomy History of thymectomy 07/2018 History of repair of rotator cuff History of tonsillectomy and adenoidectomy History of appendectomy History of colonoscopy with polypectomy History of endoscopic sinus surgery History of total bilateral knee replacement Family History Father , 76 Prostate cancer Mother , 98 No problems noted. Brother Prostate cancer Brother Prostate cancer Sister Diabetes Social History Smoking/Tobacco Use Status: Former Tobacco Use Quit Date: 07/15/84 Smoking risk assessment performed?: Yes Alcohol Intake: never Drug use: Never Substance use type: does not use Housing: house Pets and animals: No Exam Narrative Exam Narrative: He is in no obvious distress His vital signs are documented elsewhere His abdomen is soft and tender with no peritoneal signs No inguinal adenopathy is palpable The testes are soft with no palpable masses He is awake and alert Results Last Vital Signs Temp 37 C 07/02/24 11:32 Pulse 69 07/02/24 11:32 Resp 20 07/02/24 11:32 BP 120/80 07/02/24 11:32 Pulse Ox 97 07/02/24 11:32 Labs 07/03/24 06:00 07/03/24 06:00 Labs: Laboratory Results - last 24 hr 07/01/24 07/02/24 13:10 06:08 WBC 8.58 RBC 4.25 L Hgb 13.8 Hct 39.7 L MCV 93 MCH 32.5 MCHC 34.8 RDW 11.9 Plt Count 257 MPV 8.7 Immature Gran % 0.5 Neutrophils % 69.4 Lymphocytes % 16.4 Monocytes % 10.3 Eosinophils % 3.1 Basophils % 0.3 Nucleated RBC % 0.0 Absolute Neutrophils 5.95 Absolute Lymphocytes 1.41 Absolute Monocytes 0.88 H Absolute Eosinophils 0.27 Absolute Basophils 0.03 VBG Lactate 1.6 H Sodium 139 Potassium 3.9 Chloride 104 Carbon Dioxide 27.4 Anion Gap 7.6 BUN 11 Creatinine 0.7 Est GFR (CKD-EPI 2020) 95.49 Glucose 125 H Calcium 8.5 Total Bilirubin 1.16 H AST 64 H ALT 104 H Alkaline Phosphatase 128 H Total Protein 7.0 Albumin 2.9 L
[2024-07-02 14:14] LABS: LDH 152 U/L (85-227)
--- NOTE | 2024-07-02 17:06 | W.PC.ACHO ---
Registration Status: Primary Language: Preferred Language: ED Information & Data Chief Complaint Abd Prob 06/29/24 22:58 Triage Note PT reports 8 of 10 pain in L 06/29/24 17:16 /R abd quad, tender bump present in same area. Pain started last saturday after getting home from a PT appointment. Medical / Surgical History (Last Reviewed 06/30/24 @ 07:09 by Ignacio Lewis) Vertigo Change in vision History of angiography Diabetes Myasthenia gravis Mitral valve prolapse Colon polyps Prinzmetal angina Chronic sinusitis Arthritis (Last Reviewed 06/30/24 @ 07:09 by Ignacio Lewis) History of total left hip replacement History of partial colectomy History of thymectomy History of repair of rotator cuff History of tonsillectomy and adenoidectomy History of appendectomy History of colonoscopy with polypectomy History of endoscopic sinus surgery History of total bilateral knee replacement Most Recent Vital Signs Temperature 37 C 07/02/24 11:32 Temperature Source Tympanic 07/02/24 11:32 Pulse 69 07/02/24 11:32 Pulse Rhythm Regular 06/29/24 23:55 Pulse 75 06/29/24 22:10 Respiratory Rate 20 07/02/24 11:32 Respiratory Effort Normal 06/29/24 23:55 Respiratory Depth Normal 06/29/24 23:55 Respiratory Pattern Normal 06/29/24 23:55 Blood Pressure 120/80 07/02/24 11:32 Blood Pressure Mean 83 06/29/24 22:00 Blood Pressure Position Sitting 06/29/24 17:20 Pulse Oximetry 97 07/02/24 11:32 Oxygen Delivery Method Room Air 07/02/24 11:32 Oxygen Flow Rate 0 07/02/24 11:32 Pain Level 7 07/02/24 11:48 Comment pt refused vitals, nurse notified 07/01/24 23:51 Allergies chlorzoxazone (From Parafon Forte) Allergy (Verified 06/29/24 17:22) Chest pain ibuprofen Allergy (Verified 06/29/24 17:22) Agitation causes mental status changes rosuvastatin Allergy (Verified 06/29/24 17:22) Other (See Comment) Didnt like the way it felt. Active Medications Generic Name Dose Route Start Last Admin Trade Name Freq PRN Reason Stop Dose Admin Acetaminophen 1,000 mg 06/30/24 22:00 07/02/24 06:18 Acetaminophen 500 Mg Tab PO 1,000 mg Q8H PRN PRN Administration Hydromorphone HCl 1 mg 06/30/24 00:20 07/02/24 11:48 Hydromorphone 1 Mg/Ml Syr IVP 1 mg Q4H PRN PRN Administration Piperacillin Sod/Tazobactam 50 mls @ 100 mls/hr 07/02/24 12:30 07/02/24 12:59 Sod 3.375 gm/ Sodium Chloride IVPB Infused Q6H MARIEL Infusion Insulin Aspart 0 - 9 units 06/30/24 08:00 07/02/24 12:38 Insulin Aspart 300 Units/3 Ml Pen SC Not Given 0800,1200,1700 [facility] Protocol Polyethylene Glycol 17 gm 06/29/24 23:59 06/30/24 13:42 Polyethylene Glycol 3350 17 Gm Packet PO 17 gm DAILY PRN PRN Administration Constipation Pyridostigmine [place] 30 mg 06/30/24 08:30 07/02/24 08:12 Pyridostigmine 60 Mg Tab PO 30 mg TID MARIEL Administration Sodium Chloride 0 ml 06/29/24 17:49 07/02/24 03:02 Normal Saline Flush 10 Ml Syr IVP 10 ml PRN PRN Administration Sodium Chloride 0 ml 06/29/24 20:00 07/02/24 11:49 Normal Saline Flush 10 Ml Syr IVP 10 ml BID MARIEL Administration IV IV Catheter Type [Left Saline Lock Antecubital] IV Catheter Type [Right Saline Lock Antecubital] IV Catheter Gauge [Left 18 Antecubital] IV Catheter Gauge [Right 20 Antecubital] Diagnostics 07/02/24 07/02/24 Range/Units 12:55 06:08 WBC 8.58 (4.4-10.8) 10^3/uL RBC 4.25 L (4.36-5.78) 10^6/uL Hgb 13.8 (13.5-17.5) g/dL Hct 39.7 L (40.0-50.0) % MCV 93 (80-95) fL MCH 32.5 (27.0-33.0) pg MCHC 34.8 (32.0-36.0) % RDW 11.9 (11.8-14.1) % Plt Count 257 (130-400) 10^3/uL MPV 8.7 (8.0-11.0) fL Immature Gran % 0.5 % Neutrophils % 69.4 % Lymphocytes % 16.4 % Monocytes % 10.3 % Eosinophils % 3.1 % Basophils % 0.3 % Nucleated RBC % 0.0 (0.0-0.3) % Absolute Neutrophils 5.95 (1.2-6.7) 10^3/uL Absolute Lymphocytes 1.41 (1.2-3.4) 10^3/uL Absolute Monocytes 0.88 H (0.1-0.8) 10^3/uL Absolute Eosinophils 0.27 (0.0-0.7) 10^3/uL Absolute Basophils 0.03 (0.0-0.2) 10^3/uL Sodium 139 (136-145) mmol/L Potassium 3.9 (3.5-5.1) mmol/L Chloride 104 (98-107) mmol/L Carbon Dioxide 27.4 (21.0-32.0) mmol/L Anion Gap 7.6 (3-11) mmol/L BUN 11 (7-18) mg/dL Creatinine 0.7 (0.70-1.30) mg/dL Est GFR (CKD-EPI 2020) 95.49 (mL/min/1.73m2) Glucose 125 H (74-106) mg/dL Calcium 8.5 (8.5-10.1) mg/dL Total Bilirubin 1.16 H (0.2-1.0) mg/dL AST 64 H (15-37) U/L ALT 104 H (16-63) U/L Alkaline Phosphatase 128 H (46-116) U/L Lactate Dehydrogenase 152 (85-227) U/L Total Protein 7.0 (6.4-8.2) g/dL Albumin 2.9 L (3.4-5.0) g/dL Tumor Marker AFP Pending 06/29/24 20:40 Blood Culture - Preliminary Blood NO GROWTH 48 HOURS 06/29/24 20:45 Blood Culture - Preliminary Blood NO GROWTH 48 HOURS [id number] Documentation Fingerstick Glucose Start: 06/29/24 23:59 Freq: AC & HS Status: Active Protocol: Activity Type Activity Date Activity User E-sign Co-sign Detail Recorded Client Recorded Date Recorded By Document 07/02/24 11:56 BKG DAEMON(3) [id number] 07/02/24 12:10 BKG DAEMON(4) Intake and Output - 24 Hour Total 06/29/24 17:14 thru 07/02/24 12:59 Intake Total 5538 Output Total 600 Balance 4938 Weight 101.7 kg Intake: IV 908 Oral 4630 Output: Urine 600 Other: Urine Color Yellow Urine Appearance Clear Urine Odor None Comment independent Falls Risk Assessment History of Falls No History 06/29/24 23:55 Contributing Factors No Factors 06/29/24 23:55 Ambulatory Aids Independent 06/29/24 23:55 Tubes/Lines None 06/29/24 23:55 Gait Evaluation No gait disturbance 06/29/24 23:55 Cognition No cognitive impairment 06/29/24 23:55 Fall Total Score 0 06/29/24 23:55 Level of Risk Standard/Low Risk 06/29/24 23:55 Problems (Last Reviewed 06/30/24 @ 07:09 by Ignacio Lewis) Right testicular pain (Acute) Abnormal chest xray (Acute) Discharge planning issues (Acute) On deep vein thrombosis (DVT) prophylaxis (Acute) Pneumonia (Acute) Fever (Acute) Abdominal pain (Acute) v v v v v v v v v Sending and/or Receiving Nurses: Please use comment section below to note any information pertinent to the patient hand-off not included above. Information / Comments:drain placed- local only- no meds given- 20 ml out of infected fluid-vss 130sys, upper 90's for sat, hr 70-80, no complications, pt is returning [place] from[place]vir [place] [facility] [facility] [place]
[2024-07-02 18:18] VITALS: BP 147/71; PULSE 73; RESP 20; TEMP 36.8; O2SAT 97
[2024-07-02] MEDS: HYDROmorphone 2 MG/ML VIAL 1 MG IVP (18:29)
[2024-07-02] MEDS: Methocarbamol 750 MG TAB PO (20:28)
[2024-07-02] MEDS: HYDROmorphone 2 MG/ML VIAL 0.5 MG IVP ×2 (20:38→22:36)
[2024-07-02 23:29] VITALS: BP 116/62; PULSE 73; RESP 15; TEMP 37.2; O2SAT 94
--- NOTE | 2024-07-02 23:34 | PGE_ITS ---
Date of Service Date of service: 07/02/24 Time of Service: 19:30 Assessment and Plan Assessment and plan (1) Intra-abdominal abscess: Status: Acute Assessment and plan: - See flushing protocol from [facility] Change dressing daily Home health upon discharge Continue Zosyn Pain management We should have culture results in 48 hours from [facility] and [facility]NEY in 72 hours Encourage ambulation and pulmonary toilet Regular diet Lactobacillus And bowel plan Subjective Subjective Interval history since last seen: . Patient noted he was having a lot of back pain prior to the drain placement. He denied having fever or chills. But he been having pain off and on since he had his gallbladder out. The gallbladder was gangrenous. He had the drain placed today [facility]. They did it under local only and the patient had a lot of pain afterwards. They did culture it. They got about 40 cc of darkish purulent material. There is another 40 cc in the drain at the time he got back to [facility]. He was having significant pain when he returned. We were able to get this under better control. And get him on a better multimodality pain plan. Antibiotics he is currently on Zosyn He will probably go home with the drain and will need home health for drain care We reviewed notes from [facility] and CT results Exam Narrative Exam Narrative: PHYSICAL EXAM GENERAL APPEARANCE: Alert, healthy appearance, oriented, x 3,? in no acute distress HYDRATION: Well hydrated HEAD, EYES, EARS, NECK, THROAT: Head is normocephalic, pupils equal, round, reactive to light and accommodation, ocular movement intact, sclera clear and no jaundice. ?Dentition intact. laterally. ?No wheeze. ?HEART: Regular rate and rhythm. no murmurs ABDOMEN: soft and non-tender to palpation.? Normal bowel sounds.? Drain site is clean dry and intact there is about 40 cc of dark purulent material in the drain Objective Last Vital Signs Temp 37.2 C 07/02/24 23:29 Pulse 73 07/02/24 23:29 Resp 15 07/02/24 23:29 BP 116/62 07/02/24 23:29 Pulse Ox 94 07/02/24 23:29 Laboratory Results - last 24 hr 07/02/24 07/02/24 06:08 12:55 WBC 8.58 RBC 4.25 L Hgb 13.8 Hct 39.7 L MCV 93 MCH 32.5 MCHC 34.8 RDW 11.9 Plt Count 257 MPV 8.7 Immature Gran % 0.5 Neutrophils % 69.4 Lymphocytes % 16.4 Monocytes % 10.3 Eosinophils % 3.1 Basophils % 0.3 Nucleated RBC % 0.0 Absolute Neutrophils 5.95 Absolute Lymphocytes 1.41 Absolute Monocytes 0.88 H Absolute Eosinophils 0.27 Absolute Basophils 0.03 Sodium 139 Potassium 3.9 Chloride 104 Carbon Dioxide 27.4 Anion Gap 7.6 BUN 11 Creatinine 0.7 Est GFR (CKD-EPI 2020) 95.49 Glucose 125 H Calcium 8.5 Total Bilirubin 1.16 H AST 64 H ALT 104 H Alkaline Phosphatase 128 H Lactate Dehydrogenase 152 Total Protein 7.0 Albumin 2.9 L Time Spent with Patient Time Spent with Patient: 25-34 minutes Time was spent: preparing to see the patient(eg.review tests), obtaining and/or reviewing separately otained hiistory, ordering medications,tests, procedures, referring, communicating with other health child care education coordinator, indepentently interpreting results, counseling the patient, care coordination and other
[2024-07-03] VITALS (7 sets, daily range): BP systolic 97–132; BP diastolic 50–70; PULSE 67–81; RESP 15–18; TEMP 36.4–38; O2SAT 93–96
[2024-07-03] MEDS: PIPERACILLIN/TAZO 3.375 GM in Normal Saline 50 ML IVPB ×4 (00:32→18:15)
[2024-07-03] MEDS: HYDROmorphone 2 MG/ML VIAL 0.5 MG IVP ×6 (00:33→17:19)
[2024-07-03] MEDS: Heparin 5,000 UNITS/ML VIAL 5000 UNITS SC ×3 (06:10→21:35)
[2024-07-03] MEDS: Acetaminophen 500 MG TAB 1000 MG PO ×3 (06:12→19:42)
[2024-07-03 06:45] LABS: Abs Immature Grans 0.06 10^3/uL (0.0-0.06); Absolute Basophil Count 0.03 10^3/uL (0.0-0.2); Absolute Eosinophil Count 0.04 10^3/uL (0.0-0.7); Absolute Lymphocyte Count 1.09 10^3/uL (1.2-3.4); Absolute Monocyte Count 1.16 10^3/uL (0.1-0.8); Absolute Neutrophil Count 12.51 10^3/uL (1.2-6.7); Basophils % 0.2 %; Eosinophils % 0.3 %; HCT 41.7 % (40.0-50.0); HGB 14.7 g/dL (13.5-17.5); Immature Grans % 0.4 %; Lymphocytes % 7.3 %; MCH 32.3 pg (27.0-33.0); MCHC 35.3 % (32.0-36.0); MCV 92 fL (80-95); MPV 8.5 fL (8.0-11.0); Monocytes % 7.8 %; Platelet Count 286 10^3/uL (130-400); RBC 4.55 10^6/uL (4.36-5.78); RDW 11.9 % (11.8-14.1); RDW-SD 40.1 fL; WBC 14.89 10^3/uL (4.4-10.8)
[2024-07-03 07:03] LABS: ALT 96 U/L (16-63); AST 54 U/L (15-37); Alkaline Phosphatase 154 U/L (46-116); BUN 15 mg/dL (7-18); Bilirubin, Total 1.28 mg/dL (0.2-1.0); C-Reactive Protein 9.18 mg/dL (<or=0.5); CREATININE 0.8 mg/dL (0.70-1.30); Calcium 8.7 mg/dL (8.5-10.1); Chloride 101 mmol/L (98-107); Estimated GFR 91.72 (mL/min/1.73m2); Glucose 127 mg/dL (74-106); Sodium 137 mmol/L (136-145); Total Protein 7.3 g/dL (6.4-8.2)
[2024-07-03 07:05] LABS: ALT 101 U/L (16-63); AST 70 U/L (15-37); Alkaline Phosphatase 160 U/L (46-116); Bilirubin, Total 1.38 mg/dL (0.2-1.0); Total Protein 6.8 g/dL (6.4-8.2)
[2024-07-03 07:09] LABS: Hemoglobin A1C 6.1 % (<5.7)
[2024-07-03 07:19] LABS: Bilirubin, Direct 0.3 mg/dL (0.0-0.2)
[2024-07-03] MEDS: Normal Saline Flush 10 ML SYR IVP ×3 (08:14→18:15)
[2024-07-03] MEDS: Methocarbamol 750 MG TAB PO ×3 (08:15→19:42)
[2024-07-03] MEDS: Polyethylene Glycol 3350 17 GM PACKET PO ×2 (08:16→19:42)
[2024-07-03] MEDS: Insulin Aspart 300 UNITS/3 ML PEN SC ×2 (08:16→12:10)
[2024-07-03] MEDS: Lactobacillus Acidophilus CAP 1 CAP PO ×3 (08:19→17:20)
--- NOTE | 2024-07-03 09:33 | PDOC.CMDIS ---
Date of service: 07/03/24 Time of Service: 09:33 LACE Index Scoring Tool Questions: Length of Stay (in days): 4 - 6 Was the patient admitted via the E.D.?: Yes Comorbidities: Diabetes w/o Complication E.D. Visits: 1 Answers: Total Score: 9 Risk of Readmission: Low Risk Care Management Discharge Plan Reason for Hospitalization: abdominal pain Discharge Plan: Jonn will be discharged home with new home health services for nursing for drain and wound care. He will follow up with his community providers and plan of care and transport with family. Patient/Family Education Needs: Review discharge instructions, limitations, follow up plan and discuss Ask Me Three Services Needed at Discharge: Home Health Care Services SDOH Health Related Social Needs: No Data to Display
[2024-07-03 10:20] LABS: AFP Tumor Marker <2.5 ng/mL (<8.1)
[2024-07-03] MEDS: diazePAM 2 MG TAB PO (11:52)
[2024-07-03] MEDS: Methylnaltrexone 12 MG/0.6 ML VIAL SC (11:53)
--- NOTE | 2024-07-03 13:03 | PGE_ITS ---
Date of Service Date of service: 07/03/24 Time of Service: 13:03 Assessment and Plan Assessment and plan (1) Intra-abdominal abscess: Status: Acute Assessment and plan: [facility] [place] [facility] [place] with completion of abd abscess drainage on 07/02/2024 at 14:30- Round trip -Accepting physician was Dr. Lau followed here by general surgery with plan: - See flushing protocol from [facility] Change dressing daily Home health upon discharge Continue Zosyn Pain management We should have culture results in 48 hours from [facility] and [facility] in 72 hours Encourage ambulation and pulmonary toilet Regular diet Lactobacillus And bowel plan -Resuming DVT prophylaxis On pain management regimen with PRN APAP & IV hydromorphone (2) Constipation: Status: Acute Assessment and plan: aggressive bowel management relistor (3) Fever: Status: Resolved Assessment and plan: WBC normalized Continue Zosyn Blood cultures showed no growth at 48 hours (4) On deep vein thrombosis (DVT) prophylaxis: Status: Acute Assessment and plan: Resume Heparin SC in a.m. (5) Abnormal chest xray: Status: Acute Assessment and plan: Possible left lower lobe infiltrate seen on admission?no cough or need for oxygen supplementation Would most likely be covered by Zosyn given for for abd abscess (6) Pneumonia: Status: Acute Assessment and plan: Remains unlikley without respiratory symptoms febrile mostly d/t abd etilology (7) Diabetes: Assessment and plan: Not on treatment was on Ozempic prior to his gallbladder to rupture. Continue diabetic diet Continue glucometer measurements ACHS ; sensitive sliding scale insulin coverage ordered but has refused medicine. (8) Myasthenia gravis: Assessment and plan: On home med regimen with Mestinon. (9) Right testicular pain: Status: Acute Assessment and plan: Reported pain irradiating from right testicle- painful to touch, erythema Pain started s/p PT last US scrotum: RIGHT HEMISCROTUM: Right testicle exhibits normal size and blood flow. Eccentrically located in the testicle is an 11 x 4 x 7 mm hypoechoic avascular area which measures 7.7 mm craniocaudal by 6.9 mm x 2.4 mm. Appears w irregular borders oon imaging Surgical consult: As previously, discussion with Dr. Bass in the setting of localized hypoperfusion and time frame of initial symptoms-recommendation for urology consult urology consult: Seen by Dr. Astudillo as per discussion lesion is most likely of cystic nature and most likely not malignant in the setting of patient's age Beta HCG pending (10) Discharge planning issues: Status: Acute Assessment and plan: Home w no service when medically cleared Discussed with Dr. Vargas Subjective Subjective Patient reports: tolerating liquids well, tolerating a regular diet, voiding w/o difficulty, no bowel movement and shortness of breath; denies afebrile Interval history since last seen: Complaining of constipation and abdominal spasms. Exam Narrative Exam Narrative: Elderly male of stated age obese head is atraumatic eyes nonicteric noninjected oral mucosas moist neck is supple full range of motion no JVD respirations even and unlabored cardiovascular regular rate and rhythm his abdomen obese soft nontender drain on the right side of his abdomen draining a milky red fluid Objective Last Vital Signs Temp 36.7 C 07/03/24 12:00 Pulse 72 07/03/24 12:00 Resp 18 07/03/24 12:00 BP 126/65 07/03/24 12:00 Pulse Ox 94 07/03/24 12:00 Laboratory Results - last 24 hr 07/02/24 07/03/24 07/03/24 12:55 06:00 06:00 WBC 14.89 H RBC 4.55 Hgb 14.7 Hct 41.7 MCV 92 MCH 32.3 MCHC 35.3 RDW 11.9 Plt Count 286 MPV 8.5 Immature Gran % 0.4 Neutrophils % 84.0 Lymphocytes % 7.3 Monocytes % 7.8 Eosinophils % 0.3 Basophils % 0.2 Nucleated RBC % 0.0 Absolute Neutrophils 12.51 H Absolute Lymphocytes 1.09 L Absolute Monocytes 1.16 H Absolute Eosinophils 0.04 Absolute Basophils 0.03 Sodium 137 Potassium 4.0 Chloride 101 Carbon Dioxide 25.0 Anion Gap 11.0 BUN 15 Creatinine 0.8 Est GFR (CKD-EPI 2020) 91.72 Glucose 127 H Hemoglobin A1c 6.1 H Calcium 8.7 Total Bilirubin 1.28 H 1.38 H Conjugated Bilirubin 0.3 H AST 54 H ALT Alkaline Phosphatase Lactate Dehydrogenase 152 C-Reactive Protein Total Protein Albumin 07/03/24 07/03/24 07/03/24 06:00 06:00 06:00 WBC RBC Hgb Hct MCV MCH MCHC RDW Plt Count MPV Immature Gran % Neutrophils % Lymphocytes % Monocytes % Eosinophils % Basophils % Nucleated RBC % Absolute Neutrophils Absolute Lymphocytes Absolute Monocytes Absolute Eosinophils Absolute Basophils Sodium Potassium Chloride Carbon Dioxide Anion Gap BUN Creatinine Est GFR (CKD-EPI 2020) Glucose Hemoglobin A1c Calcium Total Bilirubin Conjugated Bilirubin AST 70 H ALT 96 H 101 H Alkaline Phosphatase 154 H 160 H Lactate Dehydrogenase C-Reactive Protein 9.18 H Total Protein 7.3 Albumin 07/03/24 07/03/24 06:00 06:00 WBC RBC Hgb Hct MCV MCH MCHC RDW Plt Count MPV Immature Gran % Neutrophils % Lymphocytes % Monocytes % Eosinophils % Basophils % Nucleated RBC % Absolute Neutrophils Absolute Lymphocytes Absolute Monocytes Absolute Eosinophils Absolute Basophils Sodium Potassium Chloride Carbon Dioxide Anion Gap BUN Creatinine Est GFR (CKD-EPI 2020) Glucose Hemoglobin A1c Calcium Total Bilirubin Conjugated Bilirubin AST ALT Alkaline Phosphatase Lactate Dehydrogenase C-Reactive Protein Total Protein 6.8 Albumin 3.0 L 3.0 L Time Spent with Patient Time Spent with Patient: 35-49 minutes Time was spent: preparing to see the patient(eg.review tests), obtaining and/or reviewing separately otained hiistory, ordering medications,tests, procedures, indepentently interpreting results and counseling the patient
--- NOTE | 2024-07-03 13:52 | PDOC.CMPRO ---
Date of service: 07/03/24 Time of Service: 13:52 Care Management Progress Note Progress Note Text Progress Note Text: Dae was sitting up in bed when CM met with him. He shared details about his down and back trip to [facility] yesterday. He stated he had a very bad experience on many levels including the attitude of staff and provider. He reported that the most concerning part of his procedure however was the fact that the abscess drainage and drain placement was performed with no anesthetic. He did not receive any local anesthesia nor was he given anything parenterally. Dae has myasthenia gravis and is unable to receive general anesthesia or certain other medications. After the procedure he requested pain medication and was denied anything other than Tylenol. Dae was to have been discharged today but due to his inability to get good pain control, he will remain hospitalized. Hopefully he will be able to discharge tomorrow. Discharge Potential Discharge Needs: PCP F/U Appt Anticipated Barriers to Discharge: Medical Status Patient/Family Education Needs: Review discharge instructions, discuss Ask Me Three Transportation: Private vehicle Plan: Anticipate Dae will be discharged home with new home health services for nursing for drain and wound care, when he is medically cleared. He will follow up with his community providers and plan of care and transport with family. CM will follow and continue to assess for discharge needs. SDOH(Care Management) Screening Will the Patient Participate in the Screening?: Yes Do you worry about having a steady place to live?: no Problems where you live: no known problems In the past 12 months, have you had to go without electric, gas, oil or water in your home?: no Have you or anyone in your house had to go without enough food to eat?: no Has lack of transportation kept you from medical appointments or from doing things needed for daily living?: no Has anyone in your support network made you feel unsafe for any reason?: no
[2024-07-03 13:53] LABS: Beta-HCG, Quant, Tumor Marker <0.6 IU/L (<1.4)
[2024-07-03] MEDS: Magnesium Citrate 300 ML BTL PO (17:20)
[2024-07-03] MEDS: Docusate Sodium 100 MG CAP PO (19:43)
[2024-07-04] VITALS (7 sets, daily range): BP systolic 100–150; BP diastolic 63–75; PULSE 71–81; RESP 15–18; TEMP 36.3–37; O2SAT 93–99
--- NOTE | 2024-07-04 | DI.RAD_ITS ---
Exam(s) XR ABDOMEN FLAT UPRIGHT EXAM: 2D digital imaging was performed. CLINICAL HISTORY: constipation. COMPARISON: No exams were available for comparison TECHNIQUE: Supine and upright views of the abdomen was performed. Four images were obtained. FINDINGS: LUNG BASES: Clear. BOWEL GAS PATTERN: Nondistended. There is a moderate amount of stool in the rectosigmoid colon. FREE AIR: None. CALCIFICATIONS: No radiopaque calcifications. OSSEOUS STRUCTURES: There are degenerative changes seen in the spine. The patient has a left total h ip arthroplasty which is incompletely imaged. OTHER FINDINGS: There is a pigtail catheter in the right abdomen. Surgical clips are seen in the gal lbladder fossa suggesting prior cholecystectomy. IMPRESSION: No evidence of bowel obstruction. DATA REPOSITORY: RADIATION DOSE DELIVERED:
[2024-07-04] MEDS: PIPERACILLIN/TAZO 3.375 GM in Normal Saline 50 ML IVPB ×5 (00:02→23:44)
[2024-07-04] MEDS: HYDROmorphone 2 MG/ML VIAL 0.5 MG IVP ×3 (04:15→13:18)
[2024-07-04] MEDS: Acetaminophen 500 MG TAB 1000 MG PO ×3 (04:15→19:50)
[2024-07-04] MEDS: Heparin 5,000 UNITS/ML VIAL 5000 UNITS SC ×3 (06:15→23:44)
[2024-07-04] MEDS: Polyethylene Glycol 3350 17 GM PACKET PO (08:41)
[2024-07-04] MEDS: Docusate Sodium 100 MG CAP PO ×2 (08:41→19:50)
[2024-07-04] MEDS: Lactobacillus Acidophilus CAP 1 CAP PO ×3 (08:41→17:04)
[2024-07-04] MEDS: Methocarbamol 750 MG TAB PO ×3 (08:41→19:50)
[2024-07-04] MEDS: Normal Saline Flush 10 ML SYR IVP ×5 (08:42→23:49)
[2024-07-04] MEDS: traMADol 50 MG TAB PO (10:26)
[2024-07-04] MEDS: Lactulose 20 GM/30 ML CUP PO (12:44)
--- NOTE | 2024-07-04 13:12 | PHA.REVIEW2 ---
Pharmacy Admission Review Admission Clinical Review Admission Pharmacy Review: Constipation (Acute) Intra-abdominal abscess (Acute) Right testicular pain (Acute) Abnormal chest xray (Acute) Discharge planning issues (Acute) On deep vein thrombosis (DVT) prophylaxis (Acute) Pneumonia (Acute) Abdominal pain (Acute) chlorzoxazone (From Parafon Forte) Allergy (Verified 06/29/24 17:22) Chest pain ibuprofen Allergy (Verified 06/29/24 17:22) Agitation rosuvastatin Allergy (Verified 06/29/24 17:22) Other (See Comment) Resuscitation Status Full Code Height 5 ft 10 in Weight 102.4 kg Pharmacy Admission Review Renal Dosing Renal Dosing: BUN 15 mg/dL (7-18) 07/03/24 06:00 Creatinine 0.8 mg/dL (0.70-1.30) 07/03/24 06:00 Medications needing adjustments: Reviewed (CrCl 75.34 mL/min) List of meds needing interventions: Current medications are okay Anticoagulation Anticoagulation: Hgb 14.7 g/dL (13.5-17.5) 07/03/24 06:00 Hct 41.7 % (40.0-50.0) 07/03/24 06:00 Plt Count 286 10^3/uL (130-400) 07/03/24 06:00 INR 1.0 (0.9-1.1) 07/01/24 06:14 Creatinine 0.8 mg/dL (0.70-1.30) 07/03/24 06:00 DVT Prophylaxis: Reviewed Medications: Heparin (q8h) Opiate Usage Evaluate Pain Scale/Pains Meds: Reviewed (hydromorphone 0.5mg IV q2h PRN - 2mg given in the past 24 hours) Scheduled Bowel Reg ordered if on Opiates?: Yes (docusate and Miralax) Relevant Labs Relevant Labs: Sodium 137 mmol/L (136-145) 07/03/24 06:00 Potassium 4.0 mmol/L (3.5-5.1) 07/03/24 06:00 Chloride 101 mmol/L (98-107) 07/03/24 06:00 Magnesium 2.1 mg/dL (1.8-2.4) 07/01/24 06:14 C-Reactive Protein 9.18 mg/dL (<or=0.5) H 07/03/24 06:00 Electrolytes, C-Reactive P, ESR: Reviewed (No new labs for today) DM Control DM Control: Glucose 127 mg/dL (74-106) H 07/03/24 06:00 Hemoglobin A1c 6.1 % (<5.7) H 07/03/24 06:00 Finger Stick Blood Glucose 126 0851 Finger Stick Blood Glucose 129 0734 Finger Stick Blood Glucose 129 0734 DM Control: Reviewed Insulin Dosing, Diabetic Medication: Has order for SS insulin Cardiac Review BP, HR, EF%: Reviewed (HR and BP WNL) QTc Review QTc: Reviewed (No EKG on file) IV to PO Switch IV Medications: Reviewed (hydromorphone, ondansetron and Zosyn) Home Meds Home Med List reviewed: Reviewed Relevent Home Meds Not ordered & why?: Vitamin D and loratadine Current Meds Current Medication Order Review: Reviewed Pharmacy Antibiotic Review Relevant Labs: WBC 14.89 10^3/uL (4.4-10.8) H 07/03/24 06:00 Procalcitonin < 0.10 ng/mL 06/29/24 18:03 Temperature 36.6 C Temperature 36.4 C Temperature 37.0 C Microbiology 06/29/24 20:45 Blood Culture - Preliminary Blood NO GROWTH 96 HOURS 06/29/24 20:40 Blood Culture - Preliminary Blood NO GROWTH 96 HOURS Pharmacy Antibiotic Activity: C/S review and Reviewed, no change Comments: Patient is on Zosyn, day 4. Patient remains afebrile, blood cultures negative and no repeat WBC level for today.
--- NOTE | 2024-07-04 17:42 | W.PM.PROGNOT ---
Date of Service Date of service: 07/04/24 Time of Service: 17:42 Assessment and Plan Assessment and plan (1) Intra-abdominal abscess: Status: Acute Assessment and plan: s/p [facility] [place] abscess drainage on 07/02/2024 at 14:30- Round trip -Accepting physician was Dr. Lau followed here by general surgery with plan: - See flushing protocol from [facility] Change dressing daily Home health upon discharge Continue Zosyn Pain management We should have culture results in 48 hours from [facility] and [facility] in 72 hours Encourage ambulation and pulmonary toilet Regular diet Lactobacillus And bowel plan -Resuming DVT prophylaxis On pain management regimen with PRN APAP & IV hydromorphone (2) Constipation: Status: Acute Assessment and plan: continue aggressive bowel management relistor (3) Fever: Status: Resolved Assessment and plan: WBC normalized Continue Zosyn Blood cultures showed no growth at 48 hours (4) On deep vein thrombosis (DVT) prophylaxis: Status: Acute Assessment and plan: Resume Heparin SC in a.m. (5) Abnormal chest xray: Status: Acute Assessment and plan: Possible left lower lobe infiltrate seen on admission?no cough or need for oxygen supplementation Would most likely be covered by Zosyn given for for abd abscess (6) Pneumonia: Status: Acute Assessment and plan: Remains unlikley without respiratory symptoms febrile mostly d/t abd etilology (7) Diabetes: Assessment and plan: Not on treatment was on Ozempic prior to his gallbladder to rupture. Continue diabetic diet Continue glucometer measurements ACHS ; sensitive sliding scale insulin coverage ordered but has refused medicine. (8) Myasthenia gravis: Assessment and plan: On home med regimen with Mestinon. (9) Right testicular pain: Status: Acute Assessment and plan: Reported pain irradiating from right testicle- painful to touch, erythema Pain started s/p PT last US scrotum: RIGHT HEMISCROTUM: Right testicle exhibits normal size and blood flow. Eccentrically located in the testicle is an 11 x 4 x 7 mm hypoechoic avascular area which measures 7.7 mm craniocaudal by 6.9 mm x 2.4 mm. Appears w irregular borders oon imaging Surgical consult: As previously, discussion with Dr. Bass in the setting of localized hypoperfusion and time frame of initial symptoms-recommendation for urology consult urology consult: Seen by Dr. Astudillo as per discussion lesion is most likely of cystic nature and most likely not malignant in the setting of patient's age Beta HCG pending (10) Discharge planning issues: Status: Acute Assessment and plan: Home w no service when medically cleared Discussed with Dr. Cerna Subjective Subjective Patient reports: no new complaints, tolerating liquids well, voiding w/o difficulty, no bowel movement and afebrile; denies shortness of breath Exam Narrative Exam Narrative: Elderly male of stated age obese head is atraumatic eyes nonicteric noninjected oral mucosas moist neck is supple full range of motion no JVD respirations even and unlabored cardiovascular regular rate and rhythm his abdomen obese soft tender drain on the right side of his abdomen draining a milky red fluid Objective Last Vital Signs Temp 36.3 C L 07/04/24 14:47 Pulse 79 07/04/24 14:47 Resp 18 07/04/24 14:47 BP 100/64 07/04/24 14:47 Pulse Ox 93 07/04/24 14:47 Time Spent with Patient Time Spent with Patient: 35-49 minutes Time was spent: preparing to see the patient(eg.review tests), obtaining and/or reviewing separately otained hiistory, ordering medications,tests, procedures, indepentently interpreting results and counseling the patient
[2024-07-04] MEDS: Insulin Aspart 300 UNITS/3 ML PEN SC (18:00)
--- NOTE | 2024-07-04 19:43 | DI.VRAD_ITS ---
PROCEDURE INFORMATION: Exam: XR Abdomen Exam date and time: 07/04/2024 5:52 PM Age: 74 years old Clinical indication: Constipation; Prior surgery; Surgery date: 3-7 days post-operative; Surgery type: Abcess drain in abdomen TECHNIQUE: Imaging protocol: Radiologic exam of the abdomen. Views: 2 Views. Upright and supine views. COMPARISON: MR ABDOMEN WO/W 06/30/2024 11:55 AM FINDINGS: Tubes, catheters and devices: Percutaneous drainage catheter noted in the right upper abdomen. Gastrointestinal tract: Several loops of colon appear normal in caliber with air-fluid levels. Moderate fecal retention in the rectosigmoid colon. Small bowel-gas pattern is unremarkable. Intraperitoneal space: Normal. No free air. Bones/joints: Left hip prosthesis noted. Moderate degenerative changes throughout the lower spine. Mild degenerative changes of the right hip. No acute fracture. IMPRESSION: Mildly abnormal nonspecific bowel-gas pattern as described. Dictated and Authenticated by: Jl Valenzuela MD. Ordering:MARCELINO Gonzalez MD
[2024-07-04] MEDS: HYDROmorphone 2 MG TAB PO ×2 (19:50→23:42)
[2024-07-05] MEDS: traMADol 50 MG TAB PO (00:35)
[2024-07-05] MEDS: Acetaminophen 500 MG TAB 1000 MG PO ×2 (04:18→12:51)
[2024-07-05] MEDS: HYDROmorphone 2 MG TAB PO ×4 (04:18→13:29)
[2024-07-05 06:18] VITALS: BP 123/68; PULSE 75; RESP 18; TEMP 37; O2SAT 93
[2024-07-05] MEDS: PIPERACILLIN/TAZO 3.375 GM in Normal Saline 50 ML IVPB (06:26)
[2024-07-05] MEDS: Normal Saline Flush 10 ML SYR IVP ×2 (06:27→07:40)
[2024-07-05] MEDS: Heparin 5,000 UNITS/ML VIAL 5000 UNITS SC (07:40)
[2024-07-05] MEDS: Docusate Sodium 100 MG CAP PO (07:41)
[2024-07-05] MEDS: Methocarbamol 750 MG TAB PO ×2 (07:42→13:29)
[2024-07-05] MEDS: Lactobacillus Acidophilus CAP 1 CAP PO ×2 (07:42→12:51)
[2024-07-05 07:52] VITALS: BP 126/67; PULSE 68; RESP 18; TEMP 36.5; O2SAT 93
--- NOTE | 2024-07-05 11:19 | W.PM.DS.N ---
Date of service: 07/05/24 Time of Service: 11:19 DS: Diagnosis Discharge Diagnosis (1) Intra-abdominal abscess: Status: Acute (2) Constipation: Status: Acute (3) Fever: Status: Resolved (4) Abnormal chest xray: Status: Acute (5) Pneumonia: Status: Acute (6) Diabetes: (7) Myasthenia gravis: (8) Right testicular pain: Status: Acute Discharge Plan Disposition Patient Disposition: Home W/Home Health Services Condition: Improving Discharge Details Reason For Visit: Fever with right lower quadrant abdominal pain Admit Date/Time: 06/29/24 22:47 Admit Provider: Ignacio Lewis Attending Provider: Ignacio Lewis Primary Care Provider: Tasha Brooks Hospital Course Hospital Course: This is a 74-year-old male patient past medical history significant for myasthenia gravis type 2 diabetes mitral valve prolapse arthritis status post cholecystectomy who presented to the emergency department for evaluation of a painful lump in his lower abdominal quadrant. He reportedly first noticed it 2 days prior to presentation. His workup showed a white count of 9 mild elevated bilirubin and mild transaminitis. No other lab abnormalities. CAT scan did show fluid collection around the gallbladder fossa adjacent to the tip of the right side of the liver. These fluid collections have been present since an episode of severe cholecystitis approximately a year ago. Surgery was consulted and ultimately arrangements were made to go down and back to [facility] for IR drainage. He returned with a DIONNE drain intact and draining milky red fluid. He has remained afebrile. He was placed on Zosyn and is being discharged on Augmentin to complete a 10-day course. He has been given instruction for drain management and will be discharged to home with home health services for monitoring and assistance with drain care. Pain has been managed with oral Dilaudid. He will follow-up outpatient with surgery or return sooner for new or worsening symptoms. He has been eating and drinking hemodynamically he has been stable he has been afebrile. Hospital course complicated with constipation for which she received aggressive bowel management he has been instructed to continue bowel management at home and wean pain management accordingly. discharge discussed with DR Cerna Home Meds and New Rx's Prescriptions: New polyethylene glycol 3350 17 gram Powder In Packet 17 g PO BID Qty: 30 0RF hydromorphone 2 mg Tablet 2 mg PO Q3H PRN PRNQty: 30 0RF amoxicillin-pot clavulanate 875-125 mg tablet 1 tab PO BID Qty: 20 0RF Continued tramadol [Ultram] 50 mg tablet 50 mg PO DAILY PRN acetaminophen 500 mg tablet 500 mg PO Q6H PRN cholecalciferol (vitamin D3) 1,250 mcg (50,000 unit) capsule 1,250 mcg PO QWEEK loratadine [Allergy Relief (loratadine)] 10 mg tablet 10 mg PO DAILY Changed pyridostigmine bromide [Mestinon] 60 mg tablet 60 mg PO TID Qty: 0 0RF Discharge Instructions Instructions: Abscess Drainage, Percutaneous (Fluoroscopic, Ultrasonic, or CT Guidance) Additional Instructions: -bulb suction -irrigate w/ 5cc sterile saline q shift. DO NOT ASPIRATE -change dressing daily -measure drainage daily Referrals: Tasha Brooks [Primary Care Provider] - Yamilex Heredia DO [OSTEOPATHIC DOCTOR] - Activity:: Activity as Tolerated Equipment/Supplies:: No Equipment Needed Diet:: As Tolerated Discharge Orders Discharge Orders: Discharge Order (Routine); Ordered 07/05/24 Ordered By: Lisa Morrison Discharge Data Discharge Date/Time-TO BE ENTERED AT DEPARTURE: 07/05/24 14:03 DS: Summary Time Spent with Patient providing and/or coordinating discharge services: Greater than 30 minutes Status at Discharge Functional status at discharge: independent ambulation Overall status at discharge: patient is progressing back to baseline Mental Status: mental status grossly normal Speech and Movement: speech and movement normal Mood: congruent mood Affect: normal affect Quality:SDOH Health Related Social Needs: No Data to Display Exam Narrative Exam Narrative: Elderly male of stated age obese head is atraumatic eyes nonicteric noninjected oral mucosas moist neck is supple full range of motion no JVD respirations even and unlabored cardiovascular regular rate and rhythm his abdomen obese soft tender drain on the right side of his abdomen draining a milky red fluid Psych Mental Status: mental status grossly normal Speech and Movement: speech and movement normal Mood: congruent mood Affect: normal affect DS: Data Vitals/I&O Vitals and I&O: Vital Signs Temperature 36.5 C 07/05/24 07:52 Temperature Source Tympanic 07/05/24 07:52 Pulse 68 07/05/24 07:52 Pulse Rhythm Regular 06/29/24 23:55 Pulse 75 06/29/24 22:10 Respiratory Rate 18 07/05/24 07:52 Respiratory Effort Normal 06/29/24 23:55 Respiratory Depth Normal 06/29/24 23:55 Respiratory Pattern Normal 06/29/24 23:55 Blood Pressure 126/67 07/05/24 07:52 Blood Pressure Mean 83 06/29/24 22:00 Blood Pressure Position Sitting 06/29/24 17:20 Pulse Oximetry 93 07/05/24 07:52 Oxygen Delivery Method Room Air 07/05/24 07:52 Oxygen Flow Rate 0 07/05/24 07:52 Pain Level 6 07/05/24 10:29 Comment RN Notified 07/04/24 19:15 Intake & Output 07/04/24 07/04/24 07/05/24 11:59 23:59 11:59 Intake Total 725 / 1125 400 / 1125 615 / 615 Output Total 855 / 955 100 / 955 15 / 15 Balance -130 / 170 300 / 170 600 / 600 Weight 102.4 kg Intake: IV 120 / 240 120 / 240 110 / 110 Oral 600 / 880 280 / 880 500 / 500 Injectate 5 / 5 5 / 5 Right Lower Lateral Abdomen 5 / 5 5 / 5 Output: Drainage 55 / 55 15 / 15 Right Lower Lateral Abdomen 55 / 55 15 / 15 Urine 800 / 900 100 / 900 Other: Urine Color Yellow Yellow Urine Appearance Clear Cloudy Urine Odor Strong Normal Comment per pt voided x4 voiding in toilet Stool Size Moderate Stool Characteristics Formed PFSH All Active Problems (Updated 07/03/24 @ 13:13 by Lisa Morrison NP) Constipation (Acute) Intra-abdominal abscess (Acute) Right testicular pain (Acute) Abnormal chest xray (Acute) Discharge planning issues (Acute) On deep vein thrombosis (DVT) prophylaxis (Acute) Pneumonia (Acute) Abdominal pain (Acute) Headache (Acute) Facial pain (Acute) Postnasal drip (Acute) Acute maxillary sinusitis (Acute) Medical History Vertigo Change in vision History of angiography Diabetes Type 2 Myasthenia gravis Mitral valve prolapse Colon polyps Prinzmetal angina Chronic sinusitis Arthritis Surgical History History of total left hip replacement History of partial colectomy History of thymectomy 07/2018 History of repair of rotator cuff History of tonsillectomy and adenoidectomy History of appendectomy History of colonoscopy with polypectomy History of endoscopic sinus surgery History of total bilateral knee replacement Family History Father , 76 Prostate cancer Mother , 98 No problems noted. Brother Prostate cancer Brother Prostate cancer Sister Diabetes Social History Smoking/Tobacco Use Status: Former Tobacco Use Quit Date: 07/15/84 Smoking risk assessment performed?: Yes Alcohol Intake: never Drug use: Never Substance use type: does not use Housing: house Pets and animals: No Time Spent with Patient Time Spent with Patient: 45-69 minutes Time was spent: preparing to see the patient(eg.review tests), obtaining and/or reviewing separately otained hiistory, ordering medications,tests, procedures, indepentently interpreting results, counseling the patient and care coordination
--- NOTE | 2024-07-05 13:06 | CMDISCH_ITS ---
Date of service: 07/05/24 Time of Service: 13:06 LACE Index Scoring Tool Questions: Length of Stay (in days): 4 - 6 Was the patient admitted via the E.D.?: Yes Comorbidities: Diabetes w/o Complication E.D. Visits: 1 Answers: Total Score: 9 Risk of Readmission: Low Risk Care Management Discharge Plan Reason for Hospitalization: abdominal pain caused by abscess. Abscess drained at [facility] on 07/12 Discharge Plan: Mikel was discharged home today with new orders for HH RN for dressing assessment. has been taught how to change the dressing as it is BID and [facility] will not be able to admit until 07/09 at the earliest. Patient and his are aware of this. [facility] was notified of discharge, and this CM faxed Face to Face and D/C summary were faxed by to [phone]. Mikel was given the # of the [facility] by [phone]. Mikel was given dressing supplies. He will f/u with his providers and continue per the prescribed plan of care. Mikel was driven home by his . Patient/Family Education Needs: Review of discharge instructions, activity, limitations, f/u plan and ask me 3. Services Needed at Discharge: Home Health Care Services (RN through [facility]) SDOH Health Related Social Needs: No Data to Display
--- NOTE | 2024-07-05 16:15 | PDOC.HHF2F ---
Home Health Referral Home Health Orders Clinical synopsis of why skilled professionals are needed: abdominal drain monitoring, care and teaching Medical diagnosis necessitation home health referral: abscess, s/p drainage with DIONNE drain Registered Nurse: Check all that apply Instruct on new or changed medication(s)/assess compliance: Ordered Assess for exacerbation of medical condition, instruct patient/caregivers on signs and symptoms to report for early detection: Ordered Assess wound for signs and symptoms of infection, instruct on wound care and/or provide skilled wound care consisting of: -bulb suction -irrigate w/ 5cc sterile saline q shift. DO NOT ASPIRATE -change dressing daily -measure drainage daily Encounter Date and Reason: I certify that a FTF encounter for this patient was performed on July 05, 2024 and that such encounter was related to the primary reason the patient requires home health services. The encounter was conducted in the following manner: By me as the certifying physician, TENSION MACHINE OPERATOR, PA or By an inpatient physician, TENSION MACHINE OPERATOR or PA during an inpatient stay who communicated findings to me, Certification And Authentication I certify that I composed the above information based on my clinical judgment relating to this patient's medical condition and, if applicable, clinical findings communicated to me by the NPP or inpatient physician who performed the FTF encounter. Name of Provider that will be monitoring home health services: Tasha Brooks
== END 2024-07-05 14:03 | disposition home health service (06) | DRG 371 ==
LOC: ER 23:59 → MS 06-30 00:01
PROVIDERS: Nurse Practitioner Acute Care; Surgery; Urology; Admitting Provider Family Medicine; Emergency Provider Emergency Medicine; PCP Physician Assistant Medical; Visit Provider Family Medicine
DX: K65.1 Peritoneal abscess (principal); J18.9 Pneumonia, unspecified organism; R50.81 Fever presenting with conditions classified elsewhere; G70.00 Myasthenia gravis without (acute) exacerbation; E11.9 Type 2 diabetes mellitus without complications; R93.89 Abnormal findings on diagnostic imaging of other specified body structures; N50.811 Right testicular pain; Z79.899 Other long term (current) drug therapy; K59.00 Constipation, unspecified; Z90.49 Acquired absence of other specified parts of digestive tract; R51.9 Headache, unspecified; I34.0 Nonrheumatic mitral (valve) insufficiency; Z96.642 Presence of left artificial hip joint; Z96.653 Presence of artificial knee joint, bilateral; Z80.42 Family history of malignant neoplasm of prostate; Z87.891 Personal history of nicotine dependence; Z79.85 Long-term (current) use of injectable non-insulin antidiabetic drugs
CPT/HCPCS: 00123; 36415; 74183; 80053; 80076; 83690; 84145; 85027; 87040; 96365; 96367; 96375; 96376; 99222; 99232; 99285; 71045; 74019; 74177; 76705; 76870; 81003; 82105; 83036; 83605; 83615; 83735; 84443; 84702; 85025; 85610; 85730; 86140; 99223; 99233; 99239; A0425; A0428; J0131; J1171; J1644; J1815; J1885; J2212; J2405; J2543; J3490